=== PATIENT | female | born 1950 | race Caucasian/White ===

== ENCOUNTER 2022-05-01 13:10 | Outpatient (RCR) | payer MEDICARE, BC, SELFPAY | END 2022-09-25 13:58 | disposition home or self-care (01) | PROVIDERS: PCP Family Medicine; Visit Provider Psychiatry & Neurology Neurology | DX: M76.01 Gluteal tendinitis, right hip (principal); M54.16 Radiculopathy, lumbar region; M16.11 Unilateral primary osteoarthritis, right hip; M47.816 Spondylosis without myelopathy or radiculopathy, lumbar region; R42 Dizziness and giddiness; R26.81 Unsteadiness on feet; M54.50 Low back pain, unspecified; R26.9 Unspecified abnormalities of gait and mobility; F88 Other disorders of psychological development; Q76.414 Congenital kyphosis, thoracic region; M42.00 Juvenile osteochondrosis of spine, site unspecified; R29.810 Facial weakness; I67.1 Cerebral aneurysm, nonruptured; Z51.89 Encounter for other specified aftercare | CPT/HCPCS: 97110; 97112 ==

== ENCOUNTER 2022-05-08 14:10 | Outpatient (CLI) | payer MEDICARE, BC, SELFPAY ==
--- NOTE | 2022-05-08 14:30 | CRLHL7_ITS ---
For Patients: As a result of the Century Cures Act, medical imaging exams and procedure reports are released immediately into your electronic medical record. You may view this report before your referring provider. If you have questions, please contact your health care provider. INDICATION: Unsteady gait. TECHNIQUE: Multiplanar multisequence MR imaging acquired through the brain per to and following intravenous contrast. COMPARISON: MRI brain 12/24/2019. FINDINGS: Postsurgical changes of remote left frontal craniotomy with stable encephalomalacia, gliosis, and hemosiderin in the subjacent anterior left frontal lobe associated with ex vacuo dilatation of the left frontal horn. Prominence of the ventricles and sulci compatible with mild diffuse cerebral volume loss. No mass effect or midline shift. Scattered and patchy T2 FLAIR hyperintensities in the supratentorial white matter have slightly progressed, and are typical for sequelae of [id number] chronic microvascular ischemic changes. Stable dural thickening subjacent to the craniotomy. No concerning pathologic intracranial enhancement. No recent intracranial hemorrhage or pathologic extra-axial fluid collection. Punctate susceptibility within the lateral right frontal lobe may represent chronic microhemorrhage or mineralization. No diffusion restriction to suggest acute infarction. The major arterial flow voids of the skullbase are preserved. Thinning of the ocular lenses. Minimal ethmoid sinus mucosal thickening. Trace mastoid fluid bilaterally. IMPRESSION: 1. No acute intracranial abnormality. 2. Postsurgical changes of remote left frontal craniotomy with stable encephalomalacia and gliosis in the subjacent left frontal lobe. 3. Wyvz-rr-[id number] chronic microvascular ischemic changes have slightly progressed compared to 12/24/2019. Dictated by Joel Garcia MD @ 05/09/2022 11:57:05 AM (Electronically Signed)
== END 2022-05-08 14:11 | disposition home or self-care (01) ==
LOC: MRI 14:13
PROVIDERS: PCP Family Medicine; Visit Provider Psychiatry & Neurology Neurology
DX: R26.81 Unsteadiness on feet (principal); G93.89 Other specified disorders of brain; I67.82 Cerebral ischemia; I67.1 Cerebral aneurysm, nonruptured; I68.0 Cerebral amyloid angiopathy
CPT/HCPCS: 70553; A9575

== ENCOUNTER 2023-12-23 06:53 | Outpatient (CLI) | payer MEDICARE, BC, SELFPAY ==
[2023-12-23 07:24] VITALS: BP 191/77; PULSE 53; RESP 16; O2SAT 96
== END 2023-12-23 08:11 | disposition home or self-care (01) ==
LOC: OP CLINIC 06:55
PROVIDERS: PCP Family Medicine; Visit Provider Family Medicine
DX: M25.551 Pain in right hip (principal); M62.89 Other specified disorders of muscle
CPT/HCPCS: 27006; 76942

== ENCOUNTER 2024-07-23 14:00 | Emergency (ER) | payer MEDICARE, BC, SELFPAY ==
[2024-07-23] VITALS (12 sets, daily range): BP systolic 178–196; BP diastolic 83; PULSE 62; RESP 18; TEMP 36.6; O2SAT 96–99; BMI 27.1
--- NOTE | 2024-07-23 14:34 | CRLHL7_ITS ---
For Patients: As a result of the Cures Act, medical imaging exams and procedure reports are released immediately into your electronic medical record. You may view this report before your referring provider. If you have questions, please contact your health care provider. INDICATION: Left temporal headache. TECHNIQUE: Non-contrast CT of the head is submitted. Comparison is made with the CT brain dated 02/02/2021 in the MRI brain dated 05/08/2022 FINDINGS: Redemonstrated postsurgical changes of left frontal craniotomy with underlying encephalomalacia. No acute intracranial hemorrhage or mass effect. Patchy periventricular white matter hypodensities are suggestive of chronic small vessel ischemic changes. No hydrocephalus or midline shift. Basal cisterns are widely patent. IMPRESSION: No radiographic evidence of acute intracranial abnormalities. Please note that all CT scans at this facility use dose modulation, iterative reconstruction, and/or weight-based dosing when appropriate to reduce radiation dose to as low as reasonably achievable. Dictated by Irvin David MD @ 07/23/2024 3:19:42 PM (Electronically Signed)
--- NOTE | 2024-07-23 14:35 | ED_ITS ---
HPI - Headache General Chief Complaint: Headache/Migraine Stated Complaint: Fall two months ago, headache Time Seen by Provider: 07/23/24 14:01 History of Present Illness HPI Narrative: This 73-year-old female comes in reporting a headache on the left side of her head that is rather severe. She states the headache is in the temporal region and she feels like something is about to explode. She reports that she did fall and hit her left arm and head rather hard about 2 months ago. She did not have loss of consciousness. She recovered since then but now has developed this headache over the past several days. She does have a remote history of a stroke that she recovered from. This occurred about 6 or 8 years ago. She is not on any anticoagulants. She states that she feels off balance when ambulating but does not have any unilateral weakness. She does not report any visual changes. Related Data Home Medications ?Medication ?Instructions ?Recorded ?Confirmed levothyroxine 150 mcg capsule 150 mcg PO QDAY 08/20/22 08/20/22 rosuvastatin 20 mg tablet 20 mg PO QDAY 08/20/22 07/23/24 cetirizine 10 mg tablet 10 mg PO DAILY 07/23/24 07/23/24 gabapentin 300 mg capsule mg PO 07/23/24 levothyroxine 50 mcg tablet 50 mcg PO Q1D 07/23/24 07/23/24 levothyroxine 75 mcg tablet 75 mcg PO Q1D 07/23/24 07/23/24 Previous Rx's ?Medication ?Instructions ?Recorded ketoconazole 2 % shampoo 1 applic topical 3XW #120 mL 09/04/23 dutasteride 0.5 mg capsule 0.5 mg PO QDAY #90 caps 01/27/24 ketorolac 10 mg tablet 10 mg PO Q8H 5 days #15 tabs 07/23/24 meclizine 25 mg tablet 25 mg PO QID #20 tabs 07/23/24 Allergies Allergy/AdvReac Type Severity Reaction Status Date / Time lisinopril Allergy Cough Verified 07/23/24 14:22 Review of Systems Status of ROS: Reports: 10 or more systems reviewed and unremarkable except as noted in History and below Narrative: Constitutional: No fevers, no weight gain or loss. Eyes: No discharge. No vision changes. HENT: No congestion, no sore throat, no ear pain. Cardiovascular: No chest pain, no palpitations. Respiratory: No shortness of breath, no wheezes, no cough. Gastrointestinal: No abdominal pain, no vomiting, no diarrhea. Genitourinary: No dysuria, no hematuria. Musculoskeletal: Normal range of motion. Skin: No rashes, no pruritis. Neurological: No dizziness, weakness, sensory change, speech change. Endo/Heme/Allergies: No bruising or bleeding. No polydipsia. Pysch: no suicidality, no anxiety, no insomnia. All other systems reviewed and are negative. [facility] Medical History (Updated 07/23/24 @ 16:06 by David Patel MD) History of benign breast biopsy (2015) ?Z98.890 - Other specified postprocedural states (ICD-10) Seborrheic dermatitis ?L21.9 - Seborrheic dermatitis, unspecified (ICD-10) Surgical History (Updated 09/02/23 @ 12:25 by Giacomo Lopez) Status post cholecystectomy (1986) ?Z90.49 - Acquired absence of other specified parts of digestive tract (ICD- 10) Status post breast biopsy ?Z98.890 - Other specified postprocedural states (ICD-10) History of hysterectomy (1986) ?Z90.710 - Acquired absence of both cervix and uterus (ICD-10) History of craniotomy (2017) ?Z98.890 - Other specified postprocedural states (ICD-10) History of appendectomy (1999) ?Z90.49 - Acquired absence of other specified parts of digestive tract (ICD- 10) Social History Smoking Status: Never smoker Non-prescribed substance use: denies use Exam Narrative: Exam Narrative: Constitutional: Well-developed, well-nourished, no acute distress. HEENT: Normocephalic, atraumatic. Neck: Normal range of motion. Nontender. Supple. Heart: Regular. No murmurs. Normal rate. Intact distal pulses. Lungs: Clear to auscultation. No chest discomfort. No wheezes, rhonchi, or rales. Abdomen: Normal bowel sounds. Nontender. No rebound tenderness. Genitalia: Deferred. Back: No midline tenderness. Normal range of motion. Extremities: Normal range of motion. No injury. Skin: Intact. No rash. Warm. No erythema or pallor. Neurologic: No altered sensation. No weakness. Alert and oriented. No facial asymmetry. Tongue is midline. [id number] is normal. No pronator drift. Physical Metallurgist strength is equal bilaterally. Able to raise each leg from the bed. Psychiatric: No suicidality. No anxiety or depression. No insomnia. Nursing notes and vitals signs are reviewed. Const: Vital Signs, click to edit/add: Vital Signs - 24 hr 07/23/24 14:10 07/23/24 14:27 07/23/24 14:30 Temperature 97.8 F Pulse Rate [Right Pulse Oximeter] 62 Respiratory Rate 18 Blood Pressure [Ri ght Upper Arm] 196/83 H Pulse Oximetry 98 96 99 Oxygen Delivery Me thod Room Air 07/23/24 14:40 07/23/24 14:50 07/23/24 15:03 Temperature Pulse Rate [Right Pulse Oximeter] Respiratory Rate Blood Pressure [Ri ght Upper Arm] Pulse Oximetry 98 96 99 Oxygen Delivery Me thod 07/23/24 15:10 07/23/24 15:20 07/23/24 15:28 Temperature Pulse Rate [Right Pulse Oximeter] Respiratory Rate Blood Pressure [Ri ght Upper Arm] 178/83 H Pulse Oximetry 98 97 Oxygen Delivery Me thod 07/23/24 15:30 07/23/24 15:31 07/23/24 15:40 Temperature Pulse Rate [Right Pulse Oximeter] Respiratory Rate Blood Pressure [Ri ght Upper Arm] Pulse Oximetry 96 98 97 Oxygen Delivery Me thod Course Vital Signs Vital signs: Initial Vital Signs Temperature 97.8 F 07/23/24 14:10 Temperature Source Temporal Artery Scan 07/23/24 14:10 Pulse Rate 62 07/23/24 14:10 Pulse Rhythm Regular 07/23/24 14:10 Respiratory Rate 18 07/23/24 14:10 Blood Pressure 196/83 H 07/23/24 14:10 Blood Pressure Mean 120 H 07/23/24 14:10 Blood Pressure Position Supine 07/23/24 14:10 Pulse Oximetry 98 07/23/24 14:10 Oxygen Delivery Method Room Air 07/23/24 14:10 Vital Signs Temperature 97.8 F 07/23/24 14:10 Pulse Rate 62 07/23/24 14:10 Respiratory Rate 18 07/23/24 14:10 Blood Pressure 196/83 H 07/23/24 14:10 Pulse Oximetry 98 07/23/24 14:10 Oxygen Delivery Method Room Air 07/23/24 14:10 Temperature 97.8 F 07/23/24 14:10 Pulse Rate 62 07/23/24 14:10 Respiratory Rate 18 07/23/24 14:10 Blood Pressure 178/83 H 07/23/24 15:28 Pulse Oximetry 97 07/23/24 15:40 Oxygen Delivery Method Room Air 07/23/24 14:10 MDM - Headache MDM Narrative Medical decision making narrative: This patient comes in reporting a left-sided headache since an injury that occurred a couple months ago. Prior to this about 6 or 8 years ago she did have a craniotomy because of a hematoma in her brain. She has done well since then. She does not report any visual changes. I did order CT imaging of her head and this returns with no acute findings. Lab results also are reassuring including normal levels of C reactive protein and erythrocyte sedimentation rate. She is not tripping triggers that are suspicious for temporal arteritis or some inflammatory process. These findings are reassuring to the patient. She is okay to be discharged home. I did provide prescription for Toradol and meclizine for symptomatic relief. Lab Data Labs: Lab Results 07/23/24 Range/Units 14:49 WBC 5.52 (4.50-11.00) K/uL RBC 4.08 (4.00-5.20) m/uL Hgb 12.1 (12.0-16.0) gm/dL Hct 36.4 (33.0-51.0) % MCV 89 (80-100) fL MCH 30 (26-34) pg MCHC 33 (32-36) gm/dL RDW Coeff of Garo 12.6 (11.5-15.5) % Plt Count 177 (140-440) K/uL Neut % (Auto) 70.3 (42.0-72.0) % Lymph % (Auto) 23.7 (20-44) % [place] % (Auto) 4.5 (0.0-11.0) % Eos % (Auto) 0.9 (0.0-7.0) % Baso % (Auto) 0.4 (0.0-3.0) % Neut # (Auto) 3.88 (1.7-7.0) K/uL Lymph # (Auto) 1.31 (0.90-2.90) K/uL [place] # (Auto) 0.20 (0.00-0.90) K/UL Eos # (Auto) 0.05 (0.00-0.50) K/uL Baso # (Auto) 0.02 (0.00-0.30) K/uL Abs Immat Gran (auto) 0.01 (0.00-0.30) K/uL Imm/Tot Granulo (auto) 0.2 % ESR 8 (2-20) mm/hr C-Reactive Protein < 0.5 L (0.5-1.0) mg/dL Imaging Data CT scan - head: Radiologist's impression: No radiographic evidence of acute intracranial abnormalities. Discharge Plan Discharge Clinical Impression: Headache Patient Disposition: Home, Self-Care Condition: Stable Additional Instructions: Take medication as needed and directed. Follow up with primary physician for ongoing management. Increase activity as tolerated. Prescriptions: New ketorolac 10 mg tablet 10 mg PO Q8H 5 Days Qty: 15 0RF meclizine 25 mg tablet 25 mg PO QID Qty: 20 0RF No Action rosuvastatin 20 mg tablet 20 mg PO QDAY levothyroxine 150 mcg capsule 150 mcg PO QDAY ketoconazole 2 % shampoo 1 applic topical 3XW Qty: 120 2RF Rx Instructions: Apply topically to scalp while showering 2/3 times weekly. Leave in for 3-5 minutes and thoroughly wash out. cetirizine 10 mg tablet 10 mg PO DAILY levothyroxine 75 mcg tablet 75 mcg PO Q1D levothyroxine 50 mcg tablet 50 mcg PO Q1D gabapentin 300 mg capsule PO dutasteride 0.5 mg capsule 0.5 mg PO QDAY Qty: 90 1RF Follow Up/Referrals: Courtney Treadwell DO [Primary Care Provider] - Stand Alone [facility]: [facility] Info Inst[facility]
[2024-07-23 15:01] LABS: Basophils Absolute Auto 0.02 K/uL (0.00-0.30); Basophils Percent Auto 0.4 % (0.0-3.0); Eosinophils Absolute Auto 0.05 K/uL (0.00-0.50); Eosinophils Percent Auto 0.9 % (0.0-7.0); Hematocrit 36.4 % (33.0-51.0); Hemoglobin* 12.1 gm/dL (12.0-16.0); Immature Granulocytes Abs Auto 0.01 K/uL (0.00-0.30); Immature Granulocytes Pct Auto 0.2 %; Lymphocytes Absolute Auto 1.31 K/uL (0.90-2.90); Lymphocytes Percent Auto 23.7 % (20-44); Mean Corpuscular HGB Conc 33 gm/dL (32-36); Mean Corpuscular Hemoglobin 30 pg (26-34); Mean Corpuscular Volume 89 fL (80-100); Monocytes Percent Auto 4.5 % (0.0-11.0); Neutrophils Absolute Auto 3.88 K/uL (1.7-7.0); Neutrophils Percent Auto 70.3 % (42.0-72.0); Platelet Count* 177 K/uL (140-440); RDW Coefficient of Variation % 12.6 % (11.5-15.5); Red Blood Count 4.08 m/uL (4.00-5.20); White Blood Count* 5.52 K/uL (4.50-11.00)
[2024-07-23 15:03] LABS: Slide Review Reflex No
[2024-07-23 15:16] LABS: C Reactive Protein* < 0.5 mg/dL (0.5-1.0)
[2024-07-23 15:56] LABS: Erythrocyte SedimentationRate* 8 mm/hr (2-20)
== END 2024-07-23 16:17 | disposition home or self-care (01) ==
PROVIDERS: Emergency Provider Emergency Medicine Emergency Medical Services; PCP Family Medicine
DX: R51.9 Headache, unspecified (principal)
CPT/HCPCS: 36415; 70450; 85025; 85651; 86140; 99284

== ENCOUNTER 2024-09-08 13:45 | Outpatient (RCR) | payer MEDICARE, BC, SELFPAY | END 2025-01-06 23:59 | disposition home or self-care (01) | PROVIDERS: PCP Family Medicine; Visit Provider Family Medicine | DX: R42 Dizziness and giddiness (principal); Z74.09 Other reduced mobility; R26.89 Other abnormalities of gait and mobility; R29.898 Other symptoms and signs involving the musculoskeletal system; Z51.89 Encounter for other specified aftercare | CPT/HCPCS: 97110; 97140; 97162 ==

== ENCOUNTER 2024-10-26 10:07 | Emergency (ER) | payer MEDICARE, BC, SELFPAY ==
[2024-10-26 10:53] VITALS: BP 123/71; PULSE 58; RESP 20; TEMP 36.3; O2SAT 97; BMI 27.1
[2024-10-26] MEDS: POTASSIUM BICARB 25 MEQ EFFERVESCENT TAB 50 MEQ PO (12:52)
--- NOTE | 2024-10-26 12:53 | ED_ITS ---
HPI - General Adult General Time Seen by Provider: 12:53 Date Seen: 10/26/24 Chief complaint: Unspecified Complaint, Adult Stated complaint: Abnormal Labs - Time Seen by Provider: 10/26/24 11:37 Source: patient, RN notes reviewed and old records reviewed Mode of arrival: ambulatory Limitations: no limitations History of Present Illness HPI narrative: This 73yo female is sent to the ED for symptomatic hypokalemia. She was started on hydrochlorothiazide over a month ago and went for feeling lightheaded, weak yesterday. Her potassium was subsequently found to be 2.7. Her other labs from yesterday show creatinine 1.28, estimated GFR 44, BUN 16, glucose 99, sodium 141, bicarb 39, chloride 95, calcium 10.1. These were all normal. She has maybe felt some palpitations, nothing significant or sustained as far as any irregularity of her heartbeat. She notes that she was symptomatic like this with hypokalemia after Golytely bowel prep. Related Data Home Medications ?Medication ?Instructions ?Recorded ?Confirmed levothyroxine 150 mcg capsule 150 mcg PO QDAY 08/20/22 08/20/22 rosuvastatin 20 mg tablet 20 mg PO QDAY 08/20/22 10/26/24 cetirizine 10 mg tablet 10 mg PO DAILY 07/23/24 10/26/24 gabapentin 300 mg capsule mg PO 07/23/24 levothyroxine 50 mcg tablet 50 mcg PO Q1D 07/23/24 10/26/24 levothyroxine 75 mcg tablet 75 mcg PO Q1D 07/23/24 10/26/24 Previous Rx's ?Medication ?Instructions ?Recorded ketoconazole 2 % shampoo 1 applic topical 3XW #120 mL 09/04/23 dutasteride 0.5 mg capsule 0.5 mg PO QDAY #90 caps 01/27/24 ketorolac 10 mg tablet 10 mg PO Q8H 5 days #15 tabs 07/23/24 meclizine 25 mg tablet 25 mg PO QID #20 tabs 07/23/24 potassium chloride 20 mEq 20 meq PO DAILY #3 tabs 10/26/24 tablet,extended release Allergies Allergy/AdvReac Type Severity Reaction Status Date / Time losartan Allergy Mild Verified 10/26/24 11:03 lisinopril Allergy Cough Verified 07/23/24 14:22 Review of Systems Status of ROS: Reports: 6 or more systems reviewed and unremarkable except as noted in History and below [facility] Medical History History of benign breast biopsy (2015) ?Z98.890 - Other specified postprocedural states (ICD-10) Seborrheic dermatitis ?L21.9 - Seborrheic dermatitis, unspecified (ICD-10) Surgical History Status post cholecystectomy (1986) ?Z90.49 - Acquired absence of other specified parts of digestive tract (ICD- 10) Status post breast biopsy ?Z98.890 - Other specified postprocedural states (ICD-10) History of hysterectomy (1986) ?Z90.710 - Acquired absence of both cervix and uterus (ICD-10) History of craniotomy (2017) ?Z98.890 - Other specified postprocedural states (ICD-10) History of appendectomy (1999) ?Z90.49 - Acquired absence of other specified parts of digestive tract (ICD- 10) Social History Smoking Status: Never smoker Do you use any of these nicotine containing products: None How often do you have a drink containing alcohol: never AUDIT-C Alcohol total score: 0 Non-prescribed substance use: denies use service: No Exam Const: Vital Signs, click to edit/add: Vital Signs - 24 hr 10/26/24 10:53 10/26/24 16:15 Temperature 97.4 F L Pulse Rate [Pulse Oximeter] 58 L Respiratory Rate 20 Blood Pressure [Ri ght Upper Arm] 123/71 Pulse Oximetry 97 96 Oxygen Delivery Me thod Room Air Patient is alert, interactive, no apparent distress. Very talkative. Sclera clear, symmetrical facial function, speech is normal. CV regular, no murmur, normal S1-S2, no ectopy noted. Lungs are clear, good air entry, no wheezing crackles. Abdomen is soft, nontender, nondistended, no organomegaly. Moving arms and legs. Patient ambulatory into the ED of her own accord. Documenting provider has reviewed patient's vital signs: yes Course Course ED Course: Did review her clinic note and the recent potassium level yesterday. Will have EKG obtained, have her on monitoring and place IV. Will recheck her potassium before I start IV potassium. Will start her on 50 mEq oral effervescent potassium while we wait this. If her potassium is considerably low, we will initiate IV potassium replacement. Reevaluation(s) Time of Reevaluation #1: 13:43 Reevaluation #1: Patient's potassium has come back low at 2.6 here. Besides the 50 mEq oral potassium, will give her 2 doses of 10 mEq IV. She will likely be able to discharge to home. Her hydrochlorothiazide has been stopped. Time of Reevaluation #2: 14:46 Reevaluation #2: Patient stated with IV potassium was 2 painful, had nursing staff. It almost immediately. She is not tolerating the oral potassium, drank about 1 cup and has not been able to finish the 2nd 1. Was considering just having her drink the oral potassium. It is making her nauseated. Did discuss use of Zofran. She has had ice on her arm. She is frustrated, states she has been lying there, reviewed with her that all I really have to help her is either the IV form or the oral effervescent. The oral effervescent is actually rapid acting and quickly is absorbed the GI tract. We could try some Zofran to see. She would like to start up the IV to see if she tolerates this. She states she was told by her primary that the IV was the best. I did review with her that oral effervescent he is actually very good at replacement as well. If she is not tolerating the IV, not tolerating anymore oral effervescent, can increase her prescription of the potassium for the next few days and just have her replete this orally and with diet. Time of Reevaluation #3: 15:35 Reevaluation #3: Patient's IV infusion of potassium was stopped within 25 seconds, she had severe pain again. Went back to talk to her, she really wants to try different IV site. I told her it is very likely to do the same thing. Reviewed that the oral potassium replacement should be sufficient. She states she just really has not felt well the last month and is felt weak. She does have a history of a stroke. She was concerned her potassium is went from 2.7-2.6 today. Reviewed with her that that is really not a concerning change, could even be with instances tickle difference between laboratories sampling between facilities. Did review with her that the oral immediate release effervescent potassium really does have good absorption and improvement in potassium. Will have her IV site changed and try at a 2nd IV site. She is thinking that the IV is in too far, reviewed with her that that is just a plastic 2, is very common for potassium to be not tolerated IV. Additional Reevaluation(s): 5:00 p.m.: Nursing reports that patient took about half the IV bag with the new IV site and could not tolerated any longer. She states she has done. She has drank almost to glasses of the effervescent potassium or close to 50 mEq. Will send her with the 3rd dose of the 25 mg of went effervescent potassium home with her to slowly work on overnight. She can start potassium pills in the morning and follow-up. She is exhibiting no concerning heart rhythms during her time here and potassium should be improved even though she did not get all that we wanted in. Vital Signs Vital signs: Initial Vital Signs Temperature 97.4 F L 10/26/24 10:53 Temperature Source Temporal Artery Scan 10/26/24 10:53 Pulse Rate 58 L 10/26/24 10:53 Respiratory Rate 20 10/26/24 10:53 Blood Pressure 123/71 10/26/24 10:53 Blood Pressure Mean 88 10/26/24 10:53 Blood Pressure Position Sitting 10/26/24 10:53 Pulse Oximetry 97 10/26/24 10:53 Oxygen Delivery Method Room Air 10/26/24 10:53 Vital Signs Temperature 97.4 F L 10/26/24 10:53 Pulse Rate 58 L 10/26/24 10:53 Respiratory Rate 20 10/26/24 10:53 Blood Pressure 123/71 10/26/24 10:53 Pulse Oximetry 97 10/26/24 10:53 Oxygen Delivery Method Room Air 10/26/24 10:53 Temperature 97.4 F L 10/26/24 10:53 Pulse Rate 58 L 10/26/24 10:53 Respiratory Rate 20 10/26/24 10:53 Blood Pressure 123/71 10/26/24 10:53 Pulse Oximetry 96 10/26/24 16:15 Oxygen Delivery Method Room Air 10/26/24 10:53 Medications Administered Medications: Discontinued Medications Generic Name Dose Route Start Last Admin Trade Name Pretty PRN Reason Stop Dose Admin Potassium Chloride 10 meq in 100 mls @ 100 mls/hr 10/26/24 13:45 10/26/24 14:34 Potassium Chloride IVPB 10/26/24 16:14 100 mls/hr Q90M JODY Infusion Potassium Bicarbonate 50 meq 10/26/24 11:39 10/26/24 12:52 Potassium Bicarb 25 Meq Effervescent Tab PO 10/26/24 11:40 50 meq ONCE ONE Administration Medical Decision Making Lab Data Lab results reviewed: Yes I reviewed the patient's lab results Labs: Lab Results 10/26/24 Range/Units 13:10 Potassium 2.6 L* (3.6-5.1) mmol/L ECG Data Attestation: I personally reviewed and interpreted this ECG as follows: (Sinus bradycardia, 52 beats per minute. Flattened T-waves.) Prior ECG tracings: not available for review Critical Care Time Critical Care Time Critical Care Time: No Discharge Plan Discharge Clinical Impression: Acute hypokalemia Patient Disposition: Home, Self-Care Condition: Stable Instructions: Potassium Content of Foods List (ED), Hypokalemia (ED) Additional Instructions: Taken additional daily dose of potassium for the next 3 days. Follow up in clinic in 3-5 days to have your potassium rechecked to make sure it is maintaining. Stay off the hydrochlorothiazide as your already advised, this certainly will drop your potassium again. Have provided a food list of potassium that you can also choose from to help restore your potassium. Try to slowly sip on the rest of the effervescent potassium through the evening, can put it in the Fridge and work on it tomorrow as well until it is gone. Still can take the oral tablet starting tomorrow. Activity Level: Activity as Tolerated Prescriptions: New potassium chloride 20 mEq tablet extended release 20 meq PO DAILY Qty: 3 0RF No Action rosuvastatin 20 mg tablet 20 mg PO QDAY levothyroxine 150 mcg capsule 150 mcg PO QDAY ketoconazole 2 % shampoo 1 applic topical 3XW Qty: 120 2RF Rx Instructions: Apply topically to scalp while showering 2/3 times weekly. Leave in for 3-5 minutes and thoroughly wash out. cetirizine 10 mg tablet 10 mg PO DAILY levothyroxine 75 mcg tablet 75 mcg PO Q1D levothyroxine 50 mcg tablet 50 mcg PO Q1D gabapentin 300 mg capsule PO ketorolac 10 mg tablet 10 mg PO Q8H 5 Days Qty: 15 0RF meclizine 25 mg tablet 25 mg PO QID Qty: 20 0RF dutasteride 0.5 mg capsule 0.5 mg PO QDAY Qty: 90 1RF Follow Up/Referrals: Courtney Treadwell DO [Primary Care Provider] - Stand Alone [facility]
[2024-10-26 13:37] LABS: Potassium* 2.6 mmol/L (3.6-5.1)
[2024-10-26] MEDS: POTASSIUM CHLORIDE 10 MEQ/100 ML PIGGYBACK 100 MEQ IVPB (14:23)
[2024-10-26 16:15] VITALS: O2SAT 96
--- NOTE | 2024-10-26 17:12 | ED.NURSE ---
Patient can not tolerate IV potassium. Attempted to place new IV on a different arm at patient's request, pain still felt. Attempted to slow rate down by half, patient unable to tolerate this. MD made aware.
[2024-10-26] MEDS: POTASSIUM BICARB 25 MEQ EFFERVESCENT TAB PO (17:27)
== END 2024-10-26 17:24 | disposition home or self-care (01) ==
PROVIDERS: Emergency Provider Family Medicine; PCP Family Medicine
DX: E87.6 Hypokalemia (principal)
CPT/HCPCS: 36415; 84132; 93005; 94761; 96365; 99284; A9270; J3480

== ENCOUNTER 2025-02-05 21:07 | Emergency (ER) | payer MEDICARE, BC, SELFPAY ==
--- OUTSIDE RECORDS SUMMARY | 2025-02-05 21:09 | XMS_ITS | Clinical Summary ---
Author Organization [facility] Address [address] [place] [address] Care Team Providers Care Primary Mill Roller Name Role Phone Elsewhere, Pcp Primary Care Provider Unavailabl e Source Comments Patient records contain information from all sites at [facility]. For routine questions regarding patient records, call [phone] during business hours, M-F 8:00 AM - 5:00 PM Central Time. Record requests for emergency care only can be directed to [phone] at any time.[facility] Allergies Active Allergy Reactions Criticality Noted Date Comments Lisinopril Cough 11/29/2019 Losartan Other (see comments) 03/01/2024 Dizzy, weak feeling with blood pressures 111-140's Medications cetirizine (ZyrTEC) 10 mg tablet Take 1 tablet by mouth daily. 11/27/2015 Active cholecalciferol (for_VITAMIN D3) 2,000 Unit tablet Take 2,000 Int'l Units by mouth daily. 01/31/2016 Active rosuvastatin (CRESTOR) 20 mg tablet TK 1 T PO HS 2019 Active ketoconazole (NIZORAL) 2 % shampoo 12/18/2021 Active neomycin-polymyx in-dexamethasone (MAXITROL) 3.5mg/mL-10,000 unit/mL-0.1 % ophthalmic suspension APPLY 1 DROP IN EYES TWICE DAILY FOR 5 DAYS. MAY USE LATER NEEDED. 08/28/2022 Active acetaminophen (TYLENOL) 500 mg tablet Take 1,000 mg by mouth every 6 (six) hours as needed. 12/16/2022 Active levothyroxine 50 mcg tablet Take 50 mcg by mouth every other day. 07/23/2024 Active levothyroxine 75 mcg tablet Take 1 tablet by mouth every other day. 08/11/2024 Active meclizine (Antivert) 25 mg tablet Take 1 tablet by mouth 4 (four) times a day with meals and bedtime. 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 Other Intervertebral Disc Displacement Lumbar Re gion 01/09/2015 Other Specific Arthropathies Not Elsewhere Classified Other Specified Site 01/09/2015 Radiculopathy Lumbar 01/09/2015 Trochanteric Bursitis Right Hip 04/01/2014 Cerebral Amyloid Angiopathy Immunizations Immunization Administration Dates Next Due HepA / HepB 04/07/2017,10/31/2016,09/26/2016 PCV13 10/06/2015 PPSV23 09/26/2016 TyVi (inj) 10/02/2016 influenza trivalent high dose (HD)(PF) 7,07/09/2016,08/22/2015 Social History Tobacco Use Types Packs/Day Years Used Date Smoking Tobacco: Former Cigarettes 1 15 0 1950 - 11/04/1964 Smokeless Tobacco: Never Tobacco Cessation:Counseling Given: Not Answered Comments:Stupid choice Alcohol Use Standard Drinks/Week Comments Not Currently 0 (1 standard drink = 0.6 oz pur e alcohol) [facility] Utilities Answer Date Recorded In the past 12 months has e DVTel, gas, oil, or water company threatened to shut off services in your home? No 05/03/2024 Humiliation, Afraid, Rape, and Kick questionnair e Answer Date Recorded Within the last year, have y ou been afraid of your partner or ex-partner? No 05/05/2023 Within the last year, have y ou been humiliated or emotionally abused in other ways by your partner or ex-partner? No Within the last year, have y ou been kicked, hit, slapped, or otherwise physically hurt by your partner or ex-partner? No 05/05/2023 Within the last year, have y ou been raped or forced to have any kind of sexual activity by your partner or ex-partner? No 05/05/2023 Social Connection and Isolat ion Panel [NHANES] Answer Date Recorded In a typical week, how many times do you talk on the phone with family, friends, or neighbors? More than three times a week 02/04/2023 How often do you get togethe r with friends or relatives? Three times a week 02/04/2023 How often do you attend chur or yarsanism services? More than 4 times per year 02/04/2023 Do you belong to any clubs o r organizations such as samaritan groups, unions, fraternal or athletic groups, or school groups? Yes 02/04/2023 How often do you attend meet ings of the clubs or organizations you belong to? More than 4 times per year 02/04/2023 Are you , , di vorced, , never , or living with a partner? 02/04/2023 AUDIT-C Answer Date Recorded Q1: How often do you have a drink containing alc ohol? Never 02/04/2023 Average Number of Drinks Not on file 023 Frequency of Binge Drinking Not on file 01/18 Overall Financial Resource Strain (CARDIA) Answe r Date Recorded How hard is it for you to pa y for the very basics like food, housing, medical care, and heating? Not hard at all 05/05/2023 PHQ-2 Answer Date Recorded PHQ-2 Score 0 2022 [facility] Occupat ional [facility] - Occupational Stress Questionnaire Answer Date Recorded Do you feel stress - tense, restless, nervous, or anxious, or unable to sleep at night because your mind is troubled all the time - these days? Not at all 02/04/2023 Exercise Vital Sign Answer Date Recorde d On average, how many days pe r week do you engage in moderate to strenuous exercise (like a brisk walk)? 4 days 02/25/2024 On average, how many minutes do you engage in exercise at this level? 20 min 02/25/2024 Hunger Vital Sign Answer Date Recorded Within the past 12 months, y ou worried that your food would run out before you got the money to buy more. Never true 05/03/20 Within the past 12 months, t he food you bought just didn't last and you didn't have money to get more. Never true 05/03/2024 PRAPARE - Transportation Answer Date Re corded In the past 12 months, has l ack of transportation kept you from medical appointments or from getting medications? No 04/19 In the past 12 months, has l ack of transportation kept you from meetings, work, or from getting things needed for daily living? No 05/03/2024 Nutrition Answer Date Recorded On average, how many serving s of fruits and vegetables do you eat per day (serving size is equal to 1 cup or approximately the size of a tennis ball)? 0-2 02/25/2024 Dental Answer Date Recorded Dental: Regular Dentist Yes 10/19/20 Employment Answer Date Recorded Employment status Retired 02/25/2024 Housing Stability Answer Date Recorded What is your living situation today? I have a [facility] place to live 05/03/2024 Education Answer Date Recorded What is the highest level of school you have completed or the highest degree you have received? Bachelor's degree (e.g., BA, AB, BS) 10/19/2021 Comments No Sex and Gender Information Value Date Recorded Sex Assigned at Female 08/30/2021 12:24 PM [facility] Legal Sex Female 8:20 PM [facility] Gender Identity Female 08/30/2021 12:24 PM [facility] Sexual Orientation Straight 08/30/2021 12 :24 PM [facility]NA[facility] Last Filed Vital Signs Vital Sign Reading Time Taken Comments Blood Pressure 169/66 10/09/2023 5:17 PM [facility] Pulse 61 10/09/2023 5:22 PM [facility] Temperature 36.5 C (97.7 F) 10/09/2023 4:23 PM [facility] Respiratory Rate 17 10/09/2023 5:22 PM [facility]NA[facility]ORY Oxygen Saturation 98% 10/09/2023 5:22 PM [facility]NA[facility]ORY Inhaled Oxygen Concentration - - Weight 70.8 kg (156 lb) 10/09/2023 3:22 PM [facility] Height 166.3 cm (5' 5.47) 09/10/2023 12:[address] Body Mass Index 25.59 09/10/2023 12:06 PM [facility]NAGER [facility]ORY Plan of Treatment Upcoming Encounters Date Type Department Care Team (Late st Contact Info) Description 02/21/2025 10:45 AM CDT Office Visit Department of Orthopedic Surgery in [address] [phone] Zaira Andrade, JanineP.MMela [address] [place] [address] Discharge Disposition: Home or Self Care 04/05/2025 2:00 PM CDT Office Visit Department of Dermatology in [address] [phone] Andrade Uribe M.D. [address] [place] [address] Discharge Disposition: Home or Self Care Health Maintenance Due Date Last Done Comments CT Colonography 1950 Cologuard 1950 FIT 1950 Hepatitis C Screening 1950 Office Visit for Blood Pressure Check / Re-check 11/05/2023 08/05/2023 Thyroid Stimulating Hormone (TSH) test for thyroid function 09/15/2024 09/15/2023, 08/05/2023, 07/31/2022, Additional history exists Depression Screening (Annual PHQ-2) 10/20/2024 Fall Risk Screen (Annual) 10/20/2024 COVID-19 Vaccine ( season) 2025 08/10/2024, 04/16/2024, 07/31/2023, Additional history exists Mammogram 04/19/2025 04/19/2024, 07/0 10/2023, 04/14/2023, Additional history exists Fasting Glucose for Diabetes Screening 09/15/2026 09/15/2023, 08/05/2023, 05/02/2022, Additional history exists DTaP,Tdap,and Td Vaccines (2 - Td or Tdap) 09/21/2028 09/21/2018 Colonoscopy 10/09/2033 10/09/2023, 04/01/2023 Colorectal Cancer Screening 10/09/2033 Pneumococcal vaccine (50+ years) Completed 09/26/2016, 10/06/2015 Hepatitis A Vaccines Completed 04/07/2017, 10/31/2016, 09/26/2016 Hepatitis B Vaccines Completed 04/07/2017, 04/07/2017, 10/31/2016, Additional history exists Zoster Vaccines Completed 04/11/2019, 01/02/2019 RSV vaccine - (32-36 weeks) or 60+ years Completed 09/04/2023 Bone Density Scan (Osteoporosis Screen) Discontinued 09/23/2023 Influenza Vaccine Completed 08/10/2024, , 07/31/2022, Additional history exists IPV Vaccines Aged Out No longer eligi ble based on patient's age to complete this topic Procedures Procedure Name Priority Date/Time Associated Diagnosis Comments COLONOSCOPY Routine 10/09/2023 2:41 PM [facility] Diarrhea Vomiting COMPREHENSIVE METABOLIC PANEL, S/P Routine 08/05/2023 3:21 PM CDT Diarrhea Vomiting THYROID FUNCTION CASCADE, S Routine 08/05/2023 3:21 PM CDT Diarrhea Vomiting from Last 3 Months or Most Recently Relevant to Health Maintenance Results * Colonoscopy (10/09/2023 2:41 PM MANAGER [facility]) 10/09/2023 2:41 PM [facility] Impressions [employer] [employer] - 10/09/2023 4:44 PM [facility]ORY Post-op Diagnoses: - The examined portion of the ileum was normal. - Two 2 to 3 mm polyps in the rectum, removed with a cold biopsy forceps. Resected and retrieved. - Diverticulosis in the sigmoid, descending and transverse colon. Narrative [facility] [employer] - 10/09/2023 4:44 PM MANAGER [facility]ULATORY [facility] Patient Name: Anne Roque Date of : 1950 Age: 72 Procedure Date: 10/09/2023 Procedure: Colonoscopy Providers: Adan Collier MD Referring Provider: Filemon Sabillon MD Pre-op Diagnoses: Chronic diarrhea Recommendation: - Return to referring physician as previously scheduled. - Await pathology results. Findings: The perianal and digital rectal examinations were normal. The terminal ileum appeared normal. Two sessile polyps were found in the rectum. The polyps were 2 to 3 mm in size. These polyps were removed with a cold biopsy forceps. Resection and retrieval were complete. Multiple small and large-mouthed diverticula were found in the sigmoid colon, descending colon and transverse colon. Biopsies for histology were taken with a cold forceps from the entire colon for evaluation of microscopic colitis. Procedural Details: The patient was seen, evaluated, history reviewed, airway and heart-lung exams were performed by licensed provider and were satisfactory for planned level of sedation care. The risks, benefits and alternatives for the procedure and sedation were discussed and informed consent was obtained. A procedural pause was conducted in the presence of assisting personnel to verify the correct patient identity and procedure to be performed. Throughout the procedure, the patient's blood pressure, pulse, and oxygen saturations were monitored continuously. The Pediatric Colonoscope was introduced under direct vision through the anus and advanced to 4 cm into the ileum. The colonoscopy was somewhat difficult due to a redundant colon. Successful completion of the procedure was aided by using manual pressure. The quality of the bowel preparation was evaluated using the BBPS ([place] Bowel Preparation Scale) with scores of: Right Colon = 3, Transverse Colon = 3 and Left Colon = 3 (entire mucosa seen well with no residual staining, small fragments of stool or opaque liquid). The total BBPS score equals 9. Estimated Blood Loss: Estimated blood loss was minimal. Complications: No immediate complications. Sedation: Anesthesia was administered by an anesthesia professional. The following parameters were monitored: oxygen saturation, heart rate, blood pressure, respiratory rate, EKG, adequacy of pulmonary ventilation, and response to care. Attending Participation: I personally performed the entire procedure. Adan Collier MD 10/09/2023 4:44:29 PM This report has been signed electronically. Number of Addenda: 0 us Filemon Sabillon M.D. GI PROCEDURE ORDERABLES Lacy l Result [facility] * Thyroid Function [place] (08/05/2023 3:21 PM CDT) TSH, Sensitive 1.7 0.3 - 4.2 mIU/L 08/05/2023 4:19 PM CDT DTL Blood (Blood, Venous) 08/05/2023 3:21 PM CDT 08/05/2023 3:53 PM CDT Filemon Sabillon M.D. LAB BLOOD ADD-ON Final Resul t [facility] [address] [place] [address], [facility] [address] [place] [address] * (ABNORMAL) Comprehensive Metabolic Panel (08/05/2023 3:21 PM CDT) Potassium, S 4.1 3.6 - 5.2 mmol/L 08/05/2023 4:19 PM CDT DTL Sodium, S 144 135 - 145 mmol/L 08/05/2023 4:19 PM CDT DTL Chloride, S 108(H) 98 - 107 mmol/L 08/05/2023 4:19 PM CDT DTL Bicarbonate, S 25 22 - 29 mmol/L 08/05/2023 4:19 PM CDT DTL Anion Gap 11 7 - 15 08/05/2023 4:19 PM CDT DTL BUN (Blood Urea Nitrogen), S 10 6 - 21 mg/dL 08/05/2023 4:19 PM CDT DTL Creatinine 1.00 0.59 - 1.04 mg/dL 08/05/2023 4:19 PM CDT DTL Estimated GFR (eGFR) 59(L) >=60 mL/min/BS A 08/05/2023 4:19 PM CDT DTL Comment: Estimated GFR calculated using the 2020 CKD_EPI creatinine equation. Calcium, Total, S 9.2 8.8 - 10.2 mg/dL 08/05/2023 4:19 PM CDT DTL Glucose, S 89 70 - 140 mg/dL 08/05/2023 4:19 PM CDT DTL Protein, Total, S 6.6 6.3 - 7.9 g/dL 08/05/2023 4:19 PM CDT DTL Albumin, S 4.3 3.5 - 5.0 g/dL 08/05/2023 4:19 PM CDT DTL Aspartate Aminotransferase (AST), S 54(H) 8 - 43 U/L 08/05/2023 4:19 PM CDT DTL Alkaline Phosphatase, S 153(H) 35 - 104 U/L 08/05/2023 4:19 PM CDT DTL Alanine Aminotransferase (ALT), S 49(H) 7 - 45 U/L 08/05/2023 4:19 PM CDT DTL Bilirubin, Total, S 0.4 0.0 - 1.2 mg/dL 08/05/2023 4:19 PM CDT DTL Blood (Blood, Venous) 08/05/2023 3:21 PM CDT 08/05/2023 3:53 PM CDT Filemon Sabillon M.D. LAB BLOOD ADD-ON Final Resul t [facility] [address] [place] [address], [facility] [address] [place] [address] from Last 3 Months or Most Recently Relevant to Health Maintenance [facility] Care Teams Primary Mill Roller Relationship Specialty Start Date End Date Elsewhere, Pcp PCP - General Internal Medicine 10/29/22
--- OUTSIDE RECORDS SUMMARY | 2025-02-05 21:09 | XMS_ITS | Clinical Summary ---
Author Organization [facility] Address [facility] [place] [address] Care Team Providers Care Tire Cord Weaver Name Role Phone Tamir Treadwellher Helga PILLAI Primary Care Provider [phone] Allergies Active Allergy Reactions Criticality Noted Date Comments Hydrochlorothiazide Hypokalemia 01/06/2025 Lisinopril Cough 11/29/2019 Losartan Intolerance-Can't Take 03/01/2024 Dizzy, weak feeling with blood pressures 111-140's Medications ketoconazole 2% shampoo (NIZORAL) 2 % shampoo 12/19/19 22 Active acetaminophen (TYLENOL EXTRA STRGTH) 500 mg tablet Take 2 Tablets (1,000 mg) by mouth every 6 hours if needed for Pain. Max acetaminophen dose: 4000mg in 24 hrs. 0 12/16/19 23 Active rosuvastatin (CRESTOR) 20 mg tabletIndications: Hyperlipidemia, unspecified hyperlipidemia type TAKE 1 TABLET(20 MG) BY MOUTH AT BEDTIME 90 Tablet 3 06/10/20 24 Active cetirizine (ZYRTEC) 10 mg tabletIndications: Seasonal allergies Take 1 Tablet (10 mg) by mouth once daily. 90 Tablet 2 09/08/20 24 Active meclizine (ANTIVERT) 25 mg tabletIndications: Vertigo Take 1 Tablet (25 mg) by mouth every 6 hours if needed for Vertigo. 30 Tablet 3 09/20/20 24 Active levothyroxine (SYNTHROID) 75 mcg tabletIndications: Hypothyroidism, unspecified type TAKE 1 TABLET BY MOUTH EVERY OTHER DAY 45 Tablet 3 09/20/20 24 Active levothyroxine (SYNTHROID) 50 mcg tabletIndications: Hypothyroidism, unspecified type TAKE 1 TABLET BY MOUTH EVERY OTHER DAY 45 Tablet 3 09/20/20 24 Active Active Problems Problem Noted Date Diagnosed Date Chronic constipation 12/10/2023 Generalized-onset seizures 07/31/2022 DNR (do not resuscitate) 11/07/2021 Cerebral amyloid angiopathy 12/01/2020 Aneurysm 04/05/2020 Overview (07/31/2022): Small left ICA aneurysm. This is felt to be an incidentally discovered aneurysm. Using the PHASES scoring tool, (Lancet Neurology. Vol 13, October 2013), it is estimated that the risk and rate of rupture of this aneurysm is approximately 0.4% in the next 5 years. Observation recommended. This was found on MRI incidentally 12/2019. Had repeat imaging 2020 and 2021, due December 2024. Osteopenia of necks of both femurs 06/09/2019 Overview (06/09/2019): 2016 dexa at [facility]: Osteopenia worse at right femoral neck T score -1.7 (see scanned) Pulmonary nodule 06/08/2019 Overview (12/26/2020): CT 07/09/18 two indeterminate pulmonary nodules measuring up to 5mm. Repeat CT 2020 stable, no further follow up needed Cerebral amyloid angiopathy (CODE) 10/27/2018 HTN (hypertension) 07/17/2018 Assessment & Plan (08/16/2024 2:12 PM CDT): Previously on anti-hypertensive medications but off of them after some lows. Monitor for one week and reassess the need for medication. 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 Lumbar disc bulging 01/09/2015 Lumbar facet arthropathy 01/09/2015 Lumbar radicular pain 01/09/2015 Tendinosis of the right hip gluteal tendons 03/20 S/P craniotomy Resolved Problems Problem Noted Date Diagnosed Date Resolved Date Ventricular tachycardia 12/10/2023 01/0 03/2025 Hip tendonitis 04/01/2014 12/19/2014 Encounters Date Type Department Care Team Description 01/28/2025 Orders Only [facility] Scanner 1 scan: (1-Ord) [facility], SHAVE BIOPSY, 01/28/2025 01/10/2025 3:30 PM CDT Ancillary Procedure [facility] [address] [facility] [address] 01/10/2025 Travel 01/06/2025 11:15 AM CDT Office Visit [facility] [address] [place] [address] Courtney Treadwell DO Medication Management (Potassium reaction); Blood Pressure 01/06/2025 Travel 01/01/2025 Travel 11/15/2024 1:05 PM [facility] Office Visit [facility] [address] [place] [address] Courtney Treadwell DO Follow Up; Skin Problem (itching.) 11/15/2024 Travel 11/11/2024 2:30 PM [facility] Orders Only [facility] [address] [facility] [address] [facility] [place] [facility] 11/10/2024 Travel from Last 3 Months Immunizations Immunization Administration Dates Next Due COVID-19 VACCINE SPIKEVAX (M ODERNA 50MCG/0.5ML) 12YO+ PFS 08/10/2024,07/31/2023 COVID-19 vaccine (Pfizer-Bio NTech 30mcg/0.3mL) 12YO+ BIVALENT PF, MDV 07/31/2022 COVID-19 vaccine (Pfizer-Bio NTech 30mcg/0.3mL) 12YO+ MATHIEU-SUCROSE PF, MDV 02/19/2022 COVID-19 vaccine (Pfizer-Bio NTech 30mcg/0.3mL) PFMDV 07/19/2021,01/12/2021,12/22/2020 HepA-HepB (Twinrix) 04/07/2017,10/31/2016,2015 Influenza RIV4 (Age 18+ Year s) PRESERV FREE 07/21/2019 Influenza, High-dose Inactivated 020,09/07/2019,07/17/2017,07/09,08/22/2015 Influenza, High-dose Quadriv alent Inactivated 06/29/2021 Influenza, IIV4 (=>6mos) MDV 07/22/2019,09/03/20 Influenza, Inactivated AIIV4 (Age 65+ Years) Preserv Free 07/15/2023,07/31/2022 Influenza, Inactivated IIV3 (Age 65+ Years) Preserv Free 08/10/2024 Pneumococcal Poly,23-Valent (Pneumovax) 09/26/2016 Pneumococcal conj 13-Valent (Prevnar 13) 10/06/2015 RSV, Recombinant ADJ Reconst ituted (Arexvy 120MCG/0.5mL) 09/04/2023 Tdap 09/21/2018 Tuberculin Skin Test, Unspecified 08/04/2018,11/2017 Typhoid (injectable) 10/02/2016 Zoster (Shingrix-RZV, recombinant) 04/11/2019, Family History Medical History Relation Name Comments Stroke Father Cancer-breast Mother Cancer No Family History Cancer-colon No Family History Cancer-ovarian No Family History Cancer-prostate No Family History Relation Name Status Comments Father Mother Social History Tobacco Use Types Packs/Day Years Used Date Smoking Tobacco: Former Cigarettes Q uit: 07/15/2008 Smokeless Tobacco: Never Tobacco Cessation:Counseling Given: Yes Alcohol Use Standard Drinks/Week Comments No 0 (1 standard drink = 0.6 oz pur e alcohol) PHQ-2 Answer Date Recorded PHQ-2 TOTAL SCORE 0 09/20/2024 Social Connections Answer Date Recorded Do you often feel lonely or isolated from those around you? 0 01/06/2025 Financial Resource Strain Answer Date R ecorded Difficulty of Paying Living Expenses 3 01/06/2025 Difficulty of Paying Living Expenses Not on file 01/06/2025 Food Insecurity Answer Date Recorded Do you worry your food will run out before you are able to buy more? 1 01/06/2025 Transportation Needs Answer Date Record ed Does lack of transportation keep you from medica l appointments? 1 01/06/2025 Does lack of transportation keep you from work, meetings or getting things that you need? 1 01/06/2025 Housing Stability Answer Date Recorded What is your housing situation today? 1 01/06/2025 Utilities Answer Date Recorded Do you have trouble paying f or utilities (for example, heat, electricity, water, phone)? 1 01/06/2025 Comments No Sex and Gender Information Value Date Recorded Sex Assigned at Female 11/01/2021 6:34 PM [facility] Legal Sex Female 5:25 AM [facility] Gender Identity Female 11/01/2021 6:34 PM [facility] Sexual Orientation Straight 11/01/2021 6: 34 PM [facility] Occupation Industry Job Start Date Job End Date Retired Not on file Not on file Not on file Obstetrics History Para Term AB IAB SAB Ectopic Multiple Livin g Live Births 2 2 0 2 0 0 0 0 0 2 2 Date Outcome GA Total Labor Labor/2nd/3rd Weight Sex Type Anes PTL Lisa A1 A5 Name Clin Vag Living Vag Living Last Filed Vital Signs Vital Sign Reading Time Taken Comments Blood Pressure 131/75 01/06/2025 11:43 AM CDT Pulse 73 01/06/2025 11:43 AM CDT Temperature 36.5 C (97.7 F) 07/23/2024 12:36 PM CDT Respiratory Rate 16 07/23/2024 12:36 PM CDT Oxygen Saturation 98% 01/06/2025 11:43 AM CDT Inhaled Oxygen Concentration - - Weight 71.2 kg (157 lb) 01/06/2025 11:43 AM CDT Height 162.5 cm (5' 3.98) 09/20/2024 3:05 PM CS T Body Mass Index 26.97 09/20/2024 3:05 PM [facility] Plan of Treatment Upcoming Encounters Date Type Department Care Team (Late st Contact Info) Description 02/21/2025 11:15 AM CDT Nurse/Clinic Staff Only [facility] [address] [place] [address] Health Maintenance Due Date Last Done Comments COVID-19 vaccine series ( season) 2025 08/10/2024, 04/16/2024, 07/31/2023, Additional history exists BMI (ht and wt on same day) for age 18+ 09/20/2025 09/20/2024, 09/15/2023, 03/10/2023, Additional history exists Depression screening for age 12+ 09/20/2025 09/20/2024, 09/15/2023, 07/31/2022, Additional history exists Medicare Wellness for age 65+ 09/21/2025, 09/15/2023, 07/31/2022, Additional history exists Tetanus booster 09/21/2028 09/21/2018 Lipids for age 45-75 09/20/2029 09/20/2024, 09/15/2023, 07/31/2022, Additional history exists Colonoscopy through age 75 10/09/203310/09 (Verified in Care Everywhere or Patient Record), 04/01/2023, 04/14/2019, Additional history exists Pneumococcal series for age 50+ Completed 6, 10/06/2015 Hepatitis C screening for ag e 18-79 Completed 04/02/2018 Tdap Completed 09/21/2018 Zoster (shingles) series for age 50+ Completed 04/11/2019, 01/02/2019 RSV vaccine for adults or Completed 09/04/2023 DEXA/DXA scan for age 65+ Completed 2022, 07/12/2019, 10/23/2015 Influenza Vaccine Completed 08/10/2024, , 07/31/2022, Additional history exists Medical Devices Implanted Type Area Surveyor Rod Helper Device Identifier Shelf Expiration Date Model / Serial / Lot Dura Neuro 2x2in Durepair Sut - [id number] Implanted:Qty: 1 on 07/15/2018 by Dustin Doshi MD at [facility] Left: Cranium [employer] 07/19/2020 [id number]# / / [id number] Screw Neuro 4mm Matrixneuro Slf Drill Titnm - [id number] Implanted:Qty: 18 on 07/15/2018 by Dustin Doshi MD at [facility] Left: Cranium J And Kory Depuy CMF [id number] 4.01# / / Screw Facial 4mm Matrixneuro Emergency - [id number] Implanted:Qty: 1 on 07/15/2018 by Dustin Doshi MD at [facility] Left: Cranium Kory And Kory Hutchisonuy CMF [id number] 4.01# / / Plate Facial [id number] 4hole Synthes Box - [id number] Implanted:Qty: 1 on 07/15/2018 by Dustin Doshi MD at [facility] Left: Cranium Kory And Kory Depuy CMF [id number]# / / Haily Hole Cover Neuro 24mm Synthes Low Pro Titnm - [id number] Implanted:Qty: 4 on 07/15/2018 by Dustin Doshi MD at [facility] Left: Cranium Kory And Kory Depuy CMF [id number]# / / Procedures Procedure Name Priority Date/Time Associated Diagnosis Comments SCAN-OPERATIVE/PROC EDURE REPORT 01/28/2025 12:00 AM CDT MR ANGIO HEAD BRAIN WO Routine 01/10/2025 4:48 PM CDT Cerebral aneurysm (HC) POTASSIUM Routine 11/15/2024 2:23 PM [facility] Hypokalemia TSH Routine 11/15/2024 2:23 PM [facility] History of Rody thyroiditis Hypothyroidism (acquired) HEMOGLOBIN Routine 11/15/2024 2:23 PM [facility] Fatigue, unspecified type POTASSIUM Routine 11/11/2024 2:52 PM [facility] Hypokalemia LIPID PANEL W REFLEX MEASURED LDL Routine 09/20/2024 3:55 PM [facility] Hyperlipidemia, unspecified hyperlipidemia type XR DXA BONE DENSITY 2 SITES AXIAL Routine 09/23/2023 9:45 AM [facility] Osteopenia, unspecified location Other specified disorders of bone density and structure, multiple sites COLONOSCOPY DIAGNOSTIC STAT 04/01/2023 9:49 AM CDT Melena Chronic diarrhea from Last 3 Months or Most Recently Relevant to Health Maintenance Results * SCAN-OPERATIVE/PROCEDURE REPORT (01/28/2025 12:00 AM CDT) us Scanner OTHER Final Result * MR Angio Head wo Contrast * (01/10/2025 4:48 PM CDT) Anatomical Region Laterality Modality HEAD, BRAIN Magnetic Resonan ce 01/11/2025 10:4 9 AM CDT Impressions 01/11/2025 10:49 AM CDT Unchanged 3mm left lateral paraclinoid ICA aneurysm. A follow-up MRA of the head will be obtained in December 2029, 10 years after initial discovery. Dictated by Lexx Luis MD @ 01/11/2025 10:49:59 AM (Electronically Signed) Narrative 01/11/2025 10:49 AM CDT For Patients: As a result of the Cures Act, medical imaging exams and procedure reports are released immediately into your electronic medical record. You may view this report before your referring provider. If you have questions, please contact your health care provider. CLINICAL HISTORY: Patient with cerebral aneurysm. TECHNIQUE: 3D TOF MRA of the head was performed. 3D MIP reformats were performed at an independent workstation. COMPARISON: 12/20/2021. FINDINGS: There has been no substantial interval change in the untreated 3mm left lateral paraclinoid ICA aneurysm. There are no new aneurysms. The rest of the intracranial vasculature is unremarkable. Procedure Note Lexx Luis MD - 01/11/2025 For Patients: As a result of the Cures Act, medical imagingexams and procedure reports are released immediately into your electronicmedical record. You may view this report before your referring provider.If you have questions, please contact your health care provider. CLINICAL HISTORY: Patient with cerebral aneurysm. TECHNIQUE: 3D TOF MRA of the head was performed. 3D MIP reformats were performed atan independent workstation. COMPARISON: 12/20/2021. FINDINGS: There has been no substantial interval change in the untreated 3mm leftlateral paraclinoid ICA aneurysm. There are no new aneurysms. The rest of the intracranial vasculature is unremarkable. IMPRESSION: Unchanged 3mm left lateral paraclinoid ICA aneurysm. A follow-up MRA of the head will be obtained in December 2029, 10 years afterinitial discovery. Dictated by Lexx Luis MD @ 01/11/2025 10:49:59 AM (Electronically Signed) Omayra Sandoval MD MR Final Result * TSH (11/15/2024 2:23 PM [facility]) TSH 0.94 0.40 - 4.50 mIU/L [facility] [employer] [employer] [facility] [place] Blood BLOOD SPECIMEN / Unknown 11/15/2024 2:23 PM [facility] 11/15/2024 2:23 PM [facility] Helga Treadwell DO CHEMISTRY Final Resu lt [employer] [facility] [address] [place] [address], [facility] [address] [place] [address] * HEMOGLOBIN (11/15/2024 2:23 PM [facility]) Pathologist [facility] HEMOGLOBIN 12.7 11.7 - 15.5 g/dL [facility] [place] Blood BLOOD SPECIMEN / Unknown 11/15/2024 2:23 PM [facility] 11/15/2024 2:23 PM [facility] Courtney Treadwell DO HEMATOLOGY Final Resu lt [employer] [facility] [email or web address] [employer] [place] [address], [place] [phone] [facility] [address] [place] [address] * POTASSIUM (11/15/2024 2:23 PM [facility]) Only the most recent of2 resultswithin the time period is included. Pathologist [facility] POTASSIUM 4.1 3.5 - 5.3 mmol/L [facility] [employer] [place] Blood BLOOD SPECIMEN / Unknown 11/15/2024 2:23 PM [facility] 11/15/2024 2:23 PM [facility] Courtney Partida Mile DO CHEMISTRY Final Resu lt [employer] [facility] [address] [place] [address], [facility] [address] [place] [address] * (ABNORMAL) LIPID PANEL W REFLEX MEASURED LDL (09/20/2024 3:55 PM [facility]) CHOLESTEROL, TOTAL 190 <200 mg/dL [facility] [place] HDL CHOLESTEROL 53 > OR = 50 mg/dL [facility] [employer] [employer] [facility] TRIGLYCERIDES 212(H) <150 mg/dL [facility] [employer] [facility] [place] Comment: If a non-fasting specimen was collected, consider repeat triglyceride testing on a fasting specimen if clinically indicated. Rodolfo et al. J. of Clin. Lipidol. 2015;9:129-169. LDL-CHOLESTEROL 104(H) mg/dL (calc) [facility] [employer] [facility] Comment: Reference range: <100 Desirable range <100 mg/dL for primary prevention; <70 mg/dL for patients with CHD or diabetic patients with > or = 2 CHD risk factors. LDL-C is now calculated using the Abraham-Carlene calculation, which is a validated novel method providing better accuracy than the Friedewald equation in the estimation of LDL-C. Abraham ASHLEY et al. MANJIT. 2013;310(19): 4362-6453 (http://education.MyJobMatcher.com/faq/DWQ687) CHOL/HDLC RATIO 3.6 <5.0 (calc) [facility] [employer] [facility] NON HDL CHOLESTEROL 137(H) <130 mg/dL (calc) [facility] [employer] [facility] Comment: For patients with diabetes plus 1 major ASCVD risk factor, treating to a non-HDL-C goal of <100 mg/dL (LDL-C of <70 mg/dL) is considered a therapeutic option. Blood BLOOD SPECIMEN / Unknown 09/20/2024 3:55 PM [facility] 09/20/2024 3:55 PM [facility] Courtney Treadwell DO CHEMISTRY Final Resu lt [employer] [facility] [address] [place] [address], [facility] [address] [place] [address] * (ABNORMAL) XR DXA BONE DENSITY 2 SITES AXIAL (09/23/2023 9:45 AM [facility]) Anatomical Region Laterality Modality Spine, HIPS, HIPL, HIPR Other Impressions 09/29/2023 7:54 AM [facility] Osteopenia. RECOMMENDATIONS: The National Osteoporosis Foundation recommends pharmacologic treatment for patients with T-scores of -2.5 or less, patients with prior history of fragility fractures, or patients with 10-year probability of greater than 3% at hips or greater than 20% of suffering major osteoporotic fractures. Recommend continued optimization of calcium and vitamin D intake through dietary means and/or supplementation and regular exercise. Consider pharmacologic therapy for osteopenia with increased fracture risk. Follow-up bone density reading in 2 years if therapy initiated to assess therapeutic efficacy. Danelle Monreal PA-C [facility] 09/29/2023 Narrative 09/29/2023 7:54 AM [facility] For Patients: Results are automatically released to your [facility] account once available, in compliance with federal regulations. This means that you may see your results before your provider has had a chance to review them. Please allow 2-3 business days for your provider to comment on the results. XR DXA Bone Mineral Density (BMD) EXAM LOCATION: [address] [address] PATIENT NAME: Anne Roque DATE OF : 1950 EXAM DATE: 09/23/2023 REQUESTING PROVIDER: Courtney Treadwell DO GENDER AT : female HEIGHT: 5' 3.74 (09/15/2023) WEIGHT: 162 lb (09/15/2023) MENOPAUSAL STATUS: Postmenopausal RACE/ETHNICITY: White RISK FACTORS: White Race CURRENT MEDICATION FOR BONE LOSS: NONE INDICATION: Follow-up of existing osteopenia and Post-Menopause COMPARISON DATE(S): 2018 DXA scans are compared to prior studies for a patient only when the two (or more) studies were performed on the same scanner. It is not possible to compare data generated on one scanner to data from another because there are not standards in DXA equipment. This applies even if the two scanners are made by the same interior surface insulation worker. PROCEDURE: Dual-energy x-ray absorptiometry performed with routine technique. Reporting is completed in the form of a T-score. The T-score represents the standard deviation from peak bone mass based on young healthy adult. A Z-score is used for diagnosis in premenopausal women, and for men under the age of 50. FINDINGS: RESULT LUMBAR SPINE L1 - L4 BMD: 1.208 g/cm2 T-Score: + 0.1 Z-Score: + 1.6 Change from prior in 2019: Increase 8.9%. RESULTS FEMUR Left femoral neck BMD: 0.827 g/cm2 T-Score: - 1.5 Z-Score: + 0.2 Change from prior in 2019: Increase 4.7%. Right femoral neck BMD: 0.726 g/cm2 T-Score: - 2.2 Z-Score: - 0.6 Change from prior in 2019: Decrease 4.5%. Left hip BMD: 0.743 g/cm2 T-Score: - 2.1 Z-Score: - 0.6 Change from prior in 2019: Decrease 2.4%. Right hip BMD: 0.744 g/cm2 T-Score: - 2.1 Z-Score: - 0.6 Change from prior in 2019: Decrease 5.0%. WHO criteria: Normal: T-score at or above -1 SD Osteopenia: T-score between -1.1 and -2.4 SD Osteoporosis: T-score at or below -2.5 SD FRAX RISK CALCULATION (USED FOR OSTEOPENIA ONLY): 10-year probability of major osteoporotic fracture: 14.4%. 10-year probability of hip fracture: 3.9%. us Courtney Treadwell DO DEXA Final Resu lt * COLONOSCOPY DIAGNOSTIC (04/14/2019 11:29 AM CDT) Courtney Treadwell DO GI PROCEDURE ORD Final Res ult from Last 3 Months or Most Recently Relevant to Health Maintenance Insurance MEDICARE PART A HB ONLY [facility] FED EMP MEDICARE PB ONLY MEDICARE PART B HB ONLY Advance Directives Documents on File Type Date Recorded Patient Personal Carer Expl anation POLST 11/13/2021 7:38 AM POL, [facility], 11/06/2021 Healthcare Directive 07/15/2018 12:00 AM * Full Code (Latest Code Status on File) Date Activated Date Inactivated Comments 07/15/2018 6:17 AM 07/20/2018 4:14 PM Question Answer Comments Code Status Discussion: Not DiscussedPer Advance Care Plan Care Teams Tire Cord Weaver Relationship Specialty Start Date End Date Courtney Treadwell DO [address] [place] [address] PCP - General Family Practice 10/27/18
--- OUTSIDE RECORDS SUMMARY | 2025-02-05 21:09 | XMS_ITS ---
Author Organization [facility] Address [address] [place] [address] , [address] [place] [address] Phone Care Team Providers Care Activity Coordinator Name Role Phone Shakeel Mckeon MD Conditions or Problems Problem Name Problem Code Onset Date Status Entry Date Provider Comment Standard Description Annotate Facial droop 36774058 (SNOMED CT) Resolved Shakeel Mckeon MD Weakness of face muscles Low back pain, chronic 150296688 (SNOMED CT) Active Shakeel Mckeon MD Chronic low back pain Hx of falls 094612533 (SNOMED CT) Active Shakeel Mckeon MD History of fall Hx of Benign paroxysmal positional vertigo (BPPV) 303691623 (SNOMED CT) Active Shakeel Mckeon MD H/O: vertigo Orthostatic dizziness 761407733 (SNOMED CT) Active Shakeel Mckeon MD Postural dizziness Medications No information available. Medications Administered No information available. Allergies, Adverse Reactions, Alerts No information available. Results Date Name Value Unit Range Flag Description Office Visit: Office Visit MEDS REVIEW Done Documenta tion of current medications (procedure) Plan of Care Type Date Detail Appointment 08:45 AM [place], [address] [place] [address] [employer], [address], [place], [address], Appointment 11:00 AM Carol Earl PA-C, [address] [place] [address], [address], [place], [address], Referral Pain Clinic Refe rral Referral Hand Surgeon Ref erral Pending order Follow up with N eurologist or PARMJIT Pending order Follow up with N eurologist or PARMJIT Pending order EEG 2hr Pending order EEG 2hr Pending order Occupational The rapy Pending order Physical Therapy Pending order Neuropsychology Evaluation Pending order EEG 2hr Procedures Code Procedure Name Date Entry Date [id number] Documentation of current medicatio ns Vital Signs Date Name Value Unit Description Height 64 [in_us] height E&M Immunizations No information available. Advance Directives No information available.
--- OUTSIDE RECORDS SUMMARY | 2025-02-05 21:10 | XMS_ITS ---
Author Organization [facility] Care Team Providers Care Staff Writer Name Role Phone Jayda Zaragoza Unavailable Unavailable Gold George Unavailable Unavailable Allergies and adverse reactions No Known Allergies Care Team Name Role Address Phone Organization Dates Gold George PCP [facility] [address] [place] [address], [address], [place], [facility], [facility] (Office): [facility] 07/20/2018 - 08/26/2018 Jayda Zaragoza Attending Physician [facility] [address] [place] [address] [address], [place], [facility], [facility] (Office): : [facility] 07/20/2018 - 08/26/2018 Immunizations Immunization Status Vaccine Details Vaccine Code CodeSystem Date Notes Influenza completed Influenza, high-dose, split virus, quadrivalent, injectable, preservative free lotNumber: [id number] expiry: 04/18/2019 Mfg: [employer] Given 0.5 ml Left Deltoid intramuscularly 197 CVX created date: 07/22/2018 consent date: 07/22/2018 administer ed date: 07/22/2018 Hepatitis B completed hepatitis B vaccine, adult dosage 43 CVX created date: 07/20/2018 administer ed date: 04/07/2017 3 OF 3 Hepatitis B completed hepatitis B vaccine, adult dosage 43 CVX created date: 07/20/2018 administer ed date: 10/31/2016 2 OF 3 Hepatitis B completed hepatitis B vaccine, adult dosage 43 CVX created date: 07/20/2018 administer ed date: 09/26/2016 1 OF 3 TB 2 Step Mantoux Skin Test completed tuberculin skin test; unspecified formulation lotNumber: [id number] expiry: 09/04/2020 Mfg: [employer] Given 0.1 ml Right Forearm intradermally Step 2 of Multi-step with next step required 98 CVX created date: 08/04/2018 consent date: 08/04/2018 administer ed date: 08/04/2018 Results read at 0749 on 08/06 by RADHA Hayward TB 2 Step Mantoux Skin Test completed tuberculin skin test; unspecified formulation lotNumber: [id number] expiry: 09/04/2020 Mfg: [employer] pasteur Given 0.1 ml Left Forearm intradermally Step 1 of Multi-step with next step required 98 CVX created date: 07/21/2018 consent date: 07/21/2018 administer ed date: 07/21/2018 Results read at 1138 on 07/23/18 by RADHA Hayward [email or web address], Pneumovax 23 completed created date: 07/20/2018 administer ed date: 09/26/2016 PCV13, [id number] completed created date: 07/20/2018 administer ed date: 10/06/2015 Mental Status Section Date Assessment Total Score Description 08/26/2018 BIMS 13 cognitively int act CAM 0 No delirium ind icated PHQ-9 00 08/16/2018 BIMS 13 cognitively int act CAM 2 Delirium indica hetal PHQ-9 00 Problems Problem # Description Date of onset Resolved Date Code CodeSystem Concern Status 1 ENCOUNTER FOR OTHER SPECIFIED SURGICAL AFTERCARE 07/29/[address] active 2 AGE-RELATED OSTEOPOROSIS WITHOUT CURRENT PATHOLOGICAL FRACTURE 07/20/[address] active 3 ALLERGIC RHINITIS, UNSPECIFIED 07/20/[address] active 4 CONSTIPATION, UNSPECIFIED 07/20/[address] active 5 ESSENTIAL (PRIMARY) HYPERTENSION 07/20/[address] active 6 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 07/20/[address] active 7 HYPERLIPIDEMIA, UNSPECIFIED 07/20/[address] active 8 HYPOTHYROIDISM, UNSPECIFIED 07/20/[address] active 9 OTHER REDUCED MOBILITY 07/20/[address] active 10 UNSPECIFIED SENSORINEURAL HEARING LOSS 07/20/[address] active 11 UNSTEADINESS ON FEET 07/20/[address] active 12 VITAMIN D DEFICIENCY, UNSPECIFIED 07/20/[address] active Reason for Referral No Reasons for Referral Entered Social History Social History Observation Description Start Date End Date Code Code System Current Smoking Status Tobacco smoking consumption unknown 351479221 SNOMED CT Sex Assigned At Female 1950 43048-8 [facility] Vital Signs Code Code System Vitals Name Values and Units Timing Information 8462-4 [facility] Blood Pressure-Diastolic Value=68 Un its=mmHg 08/26/2018 8480-6 [facility] Blood Pressure-Systolic Raxno=195 Un its=mmHg 08/26/2018 8867-4 [facility] Heart rate Value=81.0 Units=/min 04/2018 05324-7 [facility] Weight Ngzme=901.8 Units=Lbs 02/2018 9279-1 [facility] Respiratory Rate Value=16.0 Units=/m in 08/20/2018 8310-5 [facility] Body Temperature Value=97.7 Units= F 08/20/2018 17287-4 [facility] O2 % BldC Oximetry Value=97.0 Units= % 08/20/2018 19467-2 LOINC Pain Level Value=0.0 08/19/2018 8302-2 LOINC Height Value=64.0 Units=Inches 07/21/2018
--- OUTSIDE RECORDS SUMMARY | 2025-02-05 21:10 | XMS_ITS | Clinical Summary ---
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 Name Role Phone Savi Tyson Unavailable Unavailable Conditions or Problems Problem Name Problem Code Onset Date Status Entry Date Provider Comment Standard Description Annotate Facial droop 83015871 (SNOMED CT) 12/22 Resolved 12/22 Shakeel Mckeon MD Weakness of face muscles Low back pain, chronic 289290483 (SNOMED CT) 02/04 Active 02/04 Shakeel Mckeon MD Chronic low back pain Hx of falls 848701967 (SNOMED CT) 02/04 Active 02/04 Shakeel Mckeon MD History of fall Hx of Benign paroxysmal positional vertigo (BPPV) 009360785 (SNOMED CT) 02/04 Active 02/04 Shakeel Mckeon MD H/O: vertigo Orthostatic dizziness 441227604 (SNOMED CT) 02/04 Active 02/04 Shakeel Mckeon MD Postural dizziness Seizures 42962767 (SNOMED CT) Resolved Shakeel Mckeon MD Seizure Congenital kyphosis, 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 ) 01/23 Resolved 10/24 Shakeel Mckeon MD Congenital kyphosis, thoracic region Dyslipidemi a 243755310 (SNOMED CT) 07/17 Resolved 10/24 Shaekel Mckeon MD Dyslipidemia HTN (hypertensi on) 98182929 (SNOMED CT) 07/17 Resolved 10/24 Shakeel Mckeon MD Hypertensive disorder Hypothyroid ism 26175642 (SNOMED CT) 07/17 Resolved 10/24 Shakeel Mckeon MD Hypothyroidism Lumbar radicular pain M54.16 (ICD-10-CM ) 01/09 Resolved 10/24 Shakeel Mckeon MD Radiculopathy, lumbar region S/P craniotomy Z98.890 (ICD-10-CM ) Resolved 10/24 Shakeel Mckeon MD Other specified postprocedural states 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 ) 01/23 Resolved 10/24 Shakeel Mckeon MD Juvenile osteochondrosis of spine, site unspecified Tendinosis of the right hip gluteal tendons M70.61 (ICD-10-CM ) 04/01 Resolved 10/24 Shakeel Mckeon MD Trochanteric bursitis, right hip Vitamin D deficiency 80717852 (SNOMED CT) 07/17 Resolved 10/24 Shakeel Mckeon MD Vitamin D deficiency Dizziness 249301526 (SNOMED CT) 02/16 Resolved 02/16 Shakeel Mckeon MD Dizziness Medication monitoring 707312539 (SNOMED CT) 04/30 Resolved 04/30 Shakeel Mckeon MD Medication monitoring Medication monitoring 051231465 (SNOMED CT) 04/30 Removed 04/30 Helga Randall Rechtzigel DNP,BEAUTY CULTURIST APPRENTICE,CN P Medication monitoring Unsteady gait 51154311 (SNOMED CT) 03/04 Active 03/04 Helga Randall Rechtzigel DNP,BEAUTY CULTURIST APPRENTICE,CN P Unsteady when walking Dizziness 763436323 (SNOMED CT) 02/16 Removed 02/16 David Russell MD Dizziness Seizures 57779597 (SNOMED CT) Removed David Russell MD Seizure Cerebral aneurysm 659777581 (SNOMED CT) 12/26 Active 12/26 David Russell MD Intracranial aneurysm Facial droop 77611100 (SNOMED CT) 12/22 Removed 12/22 David Russell MD Weakness of face muscles Cognitive disorder 669157595 (SNOMED CT) 11/24 Active 12/03 Heather Holcomb PhD Cognitive disorder Cerebral amyloid angiopathy 804413222 (SNOMED CT) 10/24 Active 10/24 David Russell MD Cerebral amyloid angiopathy Vitamin D deficiency 88764265 (SNOMED CT) 07/17 Removed 10/24 David Russell MD Vitamin D deficiency Tendinosis of the right hip gluteal tendons M70.61 (ICD-10-CM ) 04/01 Removed 10/24 David Russell MD Trochanteric bursitis, right hip 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 ) 01/23 Removed 10/24 David Russell MD Juvenile osteochondrosis of spine, site unspecified S/P craniotomy Z98.890 (ICD-10-CM ) Removed 10/24 David Russell MD Other specified postprocedural states Lumbar radicular pain M54.16 (ICD-10-CM ) 01/09 Removed 10/24 David Russell MD Radiculopathy, lumbar region Hypothyroid ism 69512101 (SNOMED CT) 07/17 Removed 10/24 David Russell MD Hypothyroidism HTN (hypertensi on) 81658957 (SNOMED CT) 07/17 Removed 10/24 David Russell MD Hypertensive disorder Dyslipidemi a 924652997 (SNOMED CT) 07/17 Removed 10/24 David Russell MD Dyslipidemia Congenital kyphosis, 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 ) 01/23 Removed 10/24 David Russell MD Congenital kyphosis, thoracic region Medications Medication Instructions Start Date Stop Date Generic Name NDC Provider LAMOTRIGINE 25 MG TABS 25 mg per day for 10 days then stop lamotrigine [id number] Helga M Rechtzigel DNP,BEAUTY CULTURIST APPRENTICE,FAMILY PRACTICE PHYSICIAN GABAPENTIN 300 MG CAPS gabapentin 32356153353 Helga Abadigel DNP,BEAUTY CULTURIST APPRENTICE,FAMILY PRACTICE PHYSICIAN LAMOTRIGINE ER 50 MG [id number] decrease to 50 mg per night 01/27 lamotrigine 35784201769 Shakeel Mckeon MD LAMOTRIGINE 25 MG TABS 25 mg per day for 10 days then stop lamotrigine 38895598870 Shakeel Mckeon MD LAMOTRIGINE ER 100 MG [id number] TAKE 1 TABLET BY MOUTH EVERY NIGHT lamotrigine 01654482991 Shakeel Mckeon MD LAMOTRIGINE ER 50 MG [id number] decrease to 50 mg per night 01/27 lamotrigine 44417955046 Shakeel Mckeon MD CETIRIZINE HCL 10 MG TABS Take 10 mg by mouth once a day cetirizine 16616105931 David Russell MD ROSUVASTATIN CALCIUM 20 MG TABS tablet by mouth rosuvastatin 35992737711 David Russell MD SM VITAMIN D3 50 MCG (2000 UT) CAPS Take 2000 unit by mouth once a day cholecalciferol (vitamin d3) 73422864624 David Russell MD FINASTERIDE 5 MG TABS tablet by mouth 03/04 finasteride 94206908699 David Russell MD LEVOTHYROXINE SODIUM 50 MCG TABS tablet by mouth 1 tablet every other day levothyroxine 85630922513 Helga Abadigel DNP,BEAUTY CULTURIST APPRENTICE,FAMILY PRACTICE PHYSICIAN DUTASTERIDE 0.5 MG CAPS dutasteride 13615647801 Helga Abadigel DNP,BEAUTY CULTURIST APPRENTICE,FAMILY PRACTICE PHYSICIAN SYNTHROID 75 MCG TABS 1 tablet every other day levothyroxine 81314580225 Helga Abadigel DNP,BEAUTY CULTURIST APPRENTICE,FAMILY PRACTICE PHYSICIAN LAMICTAL XR 100 MG [id number] Take 1 tablet by mouth every night 02/18 lamotrigine 06318644571 Helga Abadigel DNP,BEAUTY CULTURIST APPRENTICE,FAMILY PRACTICE PHYSICIAN LAMOTRIGINE ER 100 MG [id number] TAKE 1 TABLET BY MOUTH EVERY NIGHT lamotrigine 51975487411 David Russell MD LAMOTRIGINE 25 MG TABS 50 mg BID 07/17 lamotrigine 49180871372 David Russell MD LAMICTAL XR 100 MG [id number] Take 1 tablet by mouth every night 02/18 lamotrigine 71584661666 Helga Teixeira DNP,BEAUTY CULTURIST APPRENTICE,FAMILY PRACTICE PHYSICIAN LAMOTRIGINE 25 MG TABS 50 mg BID 07/17 LAMOTRIGINE 66832674714 David Russell MD LAMOTRIGINE 25 MG TABS 1 TAB IN AM AND 2 TABS IN PM FOR 2 WEEKS, THEN INCREASE TO 2 TABS BID 02/16 LAMOTRIGINE 97948138751 Helga Teixeira DNP,BEAUTY CULTURIST APPRENTICE,FAMILY PRACTICE PHYSICIAN LAMOTRIGINE 25 MG TABS 1 TABLET AT BEDTIME FOR 3 WEEKS, THEN INCREASE TO 1 TABLET TWICE DAILY 12/26 LAMOTRIGINE 92740183433 Helga Teixeira DNP,BEAUTY CULTURIST APPRENTICE,FAMILY PRACTICE PHYSICIAN LEVETIRACETAM ER 500 MG [id number] 500 mg Q HS 12/11 LEVETIRACETAM 10484259799 David Russell MD LEVETIRACETAM ER 500 MG [id number] 500 mg Q HS 12/11 LEVETIRACETAM 99182205280 David Russell MD TIMOLOL MALEATE 0.5 % SOLN PLACE 1 GTT IN OD BID 07/13 TIMOLOL MALEATE 53233866900 David Russell MD IRBESARTAN 150 MG TABS TK 1 T PO QD 07/13 IRBESARTAN 20943066871 David Russell MD LISINOPRIL TABLET 12/22 LISINOPRIL TABS 49568271668 David Russell MD TIMOLOL MALEATE 0.5 % SOLN PLACE 1 GTT IN OD BID 04/05 TIMOLOL MALEATE 47534742876 David Russell MD IRBESARTAN 150 MG TABS TK 1 T PO QD 07/13 IRBESARTAN 93686380565 David Russell MD ROSUVASTATIN CALCIUM 20 MG TABS 07/05 ROSUVASTATIN CALCIUM 90720616050 David Russell MD LEVOTHYROXINE SODIUM 50 MCG TABS 03/04 LEVOTHYROXINE SODIUM 24591467030 David Russell MD ACETAMINOPHEN 500 MG TABS Take 1 tablet by mouth every 4 hours if needed (pain). Max acetaminophen dose: 4000mg in 24 hrs. 11/15 Acetaminophen 500 Mg Tablet 08536746498 David Russell MD SENNOSIDES-DOCU SATE SODIUM 8.6-50 MG TABS Take 2 tablets by mouth 2 times daily if needed for Constipation. 11/15 Sennosides 8.6 Mg-Docusate Sodium 50 Mg Tablet 75910494901 David Russell MD SIMVASTATIN 20 MG TABS Take 1 tablet by mouth at bedtime. 11/15 Simvastatin 20 Mg Tablet 47937260611 David Russell MD FINASTERIDE 5 MG TABS 03/04 FINASTERIDE 04727184536 David Russell MD VITAMIN D3 50 MCG (1999 UT) CAPS Take 2,000 Units by mouth once daily. 06/23 Vitamin D3 2,000 Unit Capsule 07036552768 David Russell MD ACETAMINOPHEN 500 MG TABS Take 1 tablet by mouth every 4 hours if needed (pain). Max acetaminophen dose: 4000mg in 24 hrs. 06/23 Acetaminophen 500 Mg Tablet 96383471144 David Russell MD AMLODIPINE BESYLATE 5 MG TABS Take 1 tablet by mouth 2 times daily. 06/23 Amlodipine 5 Mg Tablet 16824006616 David Russell MD ASPIRIN 81 MG TBEC Take 1 tablet by mouth once daily with a meal. May resume aspirin 07/25/1806/23 Aspirin 81 Mg Tablet,Delayed Release 47247948563 David Russell MD CETIRIZINE HCL 10 MG TABS Take 10 mg by mouth once daily. 06/23 Cetirizine 10 Mg Tablet 09312450610 David Russell MD LEVOTHYROXINE SODIUM 75 MCG TABS Take 75 mcg by mouth before breakfast. 06/23 Levothyroxine 75 McG Tablet 85098372302 David Russell MD PANTOPRAZOLE SODIUM 40 MG TBEC Take 1 tablet by mouth once daily before a meal. 06/23 Pantoprazole 40 Mg Tablet,Delayed Release [id number] David Russell MD SENNOSIDES-DOCU SATE SODIUM 8.6-50 MG TABS Take 2 tablets by mouth 2 times daily if needed for Constipation. 06/23 Sennosides 8.6 Mg-Docusate Sodium 50 Mg Tablet 76029279813 David Russell MD VALIUM 5 MG TABS Take 5 MG prior to procedure. May repeat once. 06/23 DIAZEPAM 73563170619 David Russell MD SIMVASTATIN 20 MG TABS Take 1 tablet by mouth at bedtime. 06/23 Simvastatin 20 Mg Tablet 38634143729 David Russell MD VALIUM 5 MG TABS Take 5 MG prior to procedure. May repeat once. 0 11/01 DIAZEPAM 72412971376 David Russell MD LISINOPRIL TABLET 0 05 LISINOPRIL TABS 48013213519 Maureen Chakraborty APRN FAMILY PRACTICE PHYSICIAN AMLODIPINE BESYLATE 5 MG TABS Take 1 tablet by mouth 2 times daily. 11/23 Amlodipine 5 Mg Tablet 11822136635 Maureen Chakraborty APRN, CNP ASPIRIN 81 MG TBEC Take 1 tablet by mouth once daily with a meal. May resume aspirin 07/25/1811/23 Aspirin 81 Mg Tablet,Delayed Release [id number] Maureen Chakraborty APRN FAMILY PRACTICE PHYSICIAN DEXAMETHASONE 2 MG TABS With food, take 1 tablet QID x 3 days, then 1 tab TID x 3 days, then 1 tab BID x 3 days, then 1 tab daily x 3 days, then stop 11/23 Dexamethasone 2 Mg Tablet 02973891336 Maureen Chakraborty APRN FAMILY PRACTICE PHYSICIAN PANTOPRAZOLE SODIUM 40 MG TBEC Take 1 tablet by mouth once daily before a meal. 11/23 Pantoprazole 40 Mg Tablet,Delayed Release [id number] Maureen Chakraborty APRN FAMILY PRACTICE PHYSICIAN LEVETIRACETAM 500 MG TABS Take 1 tablet by mouth 2 times daily. 12/03 Levetiracetam 500 Mg Tablet 91998534813 Sybil Llanes RN LEVETIRACETAM 500 MG TABS Take 1 tablet by mouth 2 times daily. 12/03 Levetiracetam 500 Mg Tablet 35939800489 Sybil Mario Alberto RN SIMVASTATIN 20 MG TABS Take 1 tablet by mouth at bedtime. 11/15 Simvastatin 20 Mg Tablet 36078348845 System Maintenance SENNOSIDES-DOCU SATE SODIUM 8.6-50 MG TABS Take 2 tablets by mouth 2 times daily if needed for Constipation. Sennosides 8.6 Mg-Docusate Sodium 50 Mg Tablet 91946319757 System Maintenance PANTOPRAZOLE SODIUM 40 MG TBEC Take 1 tablet by mouth once daily before a meal. 02/01 Pantoprazole 40 Mg Tablet,Delayed Release 16471803292 System Maintenance LEVOTHYROXINE SODIUM 75 MCG TABS Take 75 mcg by mouth before breakfast. 02/01 Levothyroxine 75 McG Tablet 88079659502 System Maintenance LEVETIRACETAM 500 MG TABS Take 1 tablet by mouth 2 times daily. 02/01 Levetiracetam 500 Mg Tablet 17451516370 System Maintenance DEXAMETHASONE 2 MG TABS With food, take 1 tablet QID x 3 days, then 1 tab TID x 3 days, then 1 tab BID x 3 days, then 1 tab daily x 3 days, then stop 11/23 Dexamethasone 2 Mg Tablet 95628303596 System Maintenance CETIRIZINE HCL 10 MG TABS Take 10 mg by mouth once daily. 03/04 Cetirizine 10 Mg Tablet 25429166903 System Maintenance ASPIRIN 81 MG TBEC Take 1 tablet by mouth once daily with a meal. May resume aspirin 07/25/1805/03 Aspirin 81 Mg Tablet,Delayed Release [id number] System Maintenance AMLODIPINE BESYLATE 5 MG TABS Take 1 tablet by mouth 2 times daily. 02/01 Amlodipine 5 Mg Tablet 67435931624 System Maintenance ACETAMINOPHEN 500 MG TABS Take 1 tablet by mouth every 4 hours if needed (pain). Max acetaminophen dose: 4000mg in 24 hrs. 11/15 Acetaminophen 500 Mg Tablet 36491274032 System Maintenance VITAMIN D3 50 MCG (2000 UT) CAPS Take 2,000 Units by mouth once daily. 03/04 Vitamin D3 2,000 Unit Capsule 10827110961 System Maintenance SIMVASTATIN 20 MG TABS Take 1 tablet by mouth at bedtime. 06/23 Simvastatin 20 Mg Tablet 32032335145 System Maintenance SENNOSIDES-DOCU SATE SODIUM 8.6-50 MG TABS Take 2 tablets by mouth 2 times daily if needed for Constipation. Sennosides 8.6 Mg-Docusate Sodium 50 Mg Tablet 16346295948 System Maintenance PANTOPRAZOLE SODIUM 40 MG TBEC Take 1 tablet by mouth once daily before a meal. 02/01 Pantoprazole 40 Mg Tablet,Delayed Release 57014700826 System Maintenance LEVOTHYROXINE SODIUM 75 MCG TABS Take 75 mcg by mouth before breakfast. 02/01 Levothyroxine 75 McG Tablet 57897787995 System Maintenance LEVETIRACETAM 500 MG TABS Take 1 tablet by mouth 2 times daily. 02/01 Levetiracetam 500 Mg Tablet 49359523893 System Maintenance CETIRIZINE HCL 10 MG TABS Take 10 mg by mouth once daily. 02/01 Cetirizine 10 Mg Tablet 91339857364 System Maintenance ASPIRIN 81 MG TBEC Take 1 tablet by mouth once daily with a meal. May resume aspirin 07/25/1805/03 Aspirin 81 Mg Tablet,Delayed Release [id number] System Maintenance AMLODIPINE BESYLATE 5 MG TABS Take 1 tablet by mouth 2 times daily. 02/01 Amlodipine 5 Mg Tablet 53883128285 System Maintenance ACETAMINOPHEN 500 MG TABS Take 1 tablet by mouth every 4 hours if needed (pain). Max acetaminophen dose: 4000mg in 24 hrs. 06/23 Acetaminophen 500 Mg Tablet 78302698723 System Maintenance VITAMIN D3 50 MCG (2000 UT) CAPS Take 2,000 Units by mouth once daily. 06/23 Vitamin D3 2,000 Unit Capsule 77952775884 System Maintenance Medications Administered No information available. Allergies, Adverse Reactions, Alerts Observed no known allergies at Results Date Name Value Unit Range Flag Description Office Visit: DEMENTIA EVAL 08/24/18 08:31- 08/24/18 08:31 REFERRING PHYSI... FALLRSKASSES Patient screened for falls, fall risk Fall risk assessment SMOK STATUS former smoker Tob acco smoking status Replaced Document: (P) T4, F REE, TSH, VITAMIN B12, LEVETIRACETAM, METHYLMALONIC ... METHYL MALON * nmol/L methylma lonic acid (MMA), serum LEVETIRACETM * ug/mL levETIRA cetam [Mass/volume] in Serum or Plasma B-12 * pg/mL Cobalamin (Vitamin B12) [Mass/volume] in Serum or Plasma TSH 0.77 u[iU]/mL 0.40-4.50 N Thyrotropi n [Units/volume] in Serum or Plasma FRT4 1.6 0.8-1.8 N FREE T4 Internal Other: Verbal Autho rization/Emergency Contact - OBS VERBAL_EMER DONE Verbal authorization and emergency contact Internal Other: Observation data from Authorization.pdf HIECONSENT Y Consent To Release information to the Health Information Exchange ([employer]) Office Visit: Office Visit MEDS REVIEW Done Documenta tion of current medications (procedure) Plan of Care Type Date Detail Appointment 08:45 AM Shakeel Mckeon MD, [facility] [address], [address], [place], [address], Appointment 11:00 AM Carol Earl PA-C, [facility] [address], [address], [place], [address], Referral Pain Clinic Refe rral Referral Hand Surgeon Ref erral Pending order Follow up with N eurologist or PARMJIT Pending order Follow up with N eurologist or PARMJIT Pending order EEG 2hr Pending order EEG 2hr Pending order Occupational The rapy Pending order Physical Therapy Pending order Neuropsychology Evaluation Pending order EEG 2hr Pending order Follow up Pending order Follow up with N eurologist or PARMJIT Pending order Follow up in cli collin or telemedicine with provider or PARMJIT Pending order Follow up in cli collin or telemedicine Pending order Follow up in cli collin Pending order Other Referral Pending Order exclud ed from report: Pending order Other Referral Pending order MRI-Brain W/WO Pending order Obtain outside r ecords Pending order Obtain outside r ecords Pending Order exclud ed from report: Pending order Follow up PARMJIT in clinic or telemedicine Pending order CBC with Diff/Pl atelet Pending order Comp Metabolic P mishel (14) Pending order Lamotrigine (Schwartz ictal) Pending order Urinalysis Compl ete (w/Microscopic) Pending order Instructions for Staff Pending order Physical Therapy Pending order Follow up Pending order Follow up PARMJIT Pending order Lamotrigine (Schwartz ictal) Pending order MRI-Brain W/WO Pending Order exclud ed from report: Pending order Follow up PARMJIT Pending order MRI-Brain W/WO Pending order Other Radiology Pending order Instructions for Staff Pending order Lamotrigine (Schwartz ictal) Pending order Follow up PARMJIT Pending order Lamotrigine (Schwartz ictal) Pending order Physical Therapy Pending order Follow up PARMJIT Pending order Patient Instruct ions Pending order Follow up PARMJIT Pending order Follow up after testing Pending order Follow up Pending order EEG Ambulatory Pending order Follow up Pending order We will contact you with test results Pending order Consult Pending order MRI-Brain W/WO Pending order MRA-Head W/O Pending order MRA-Neck W/WO Pending order Creatinine Serum Pending order Follow up Pending order Instructions for Staff Pending order MRI-Brain W/WO Pending order MRI-Brain W/WO Pending order Patient Notifica tion Pending order Follow up Pending order Patient Instruct ions Pending order Follow up Pending order Follow up Pending order Other Test Pending order Levetiracetam (K eppra) Pending order Methylmalonic Ac id Serum (MMA) Pending order T4 Free Direct Pending order TSH Pending order Vitamin B12 Pending order Patient Notifica tion Pending order Other Referral Patient education Medications Patient education Medications Procedures Code Procedure Name Date Entry Date [id number] Documentation of current medicatio ns ORDERS Follow up SCT-[id number] Documentation of current medicatio ns ORDERS Follow up with Neurologist or PARMJIT SCT-[id number] Documentation of current medicatio ns ORDERS Follow up in clinic or telemedicine with provider or PARMJIT SCT-[id number] Documentation of current medicatio ns ORDERS Follow up in clinic [id number] Other Referral [id number] MRI-Brain W/WO ORDERS Obtain outside records 05/06 ORDERS Follow up PARMJIT in clinic or telemedicine 2 ORDERS Follow up in clinic or telemedicine 05/06 ORDERS CBC with Diff/Platelet 04/30 ORDERS Comp Metabolic Panel (14) 10/05/12 ORDERS Lamotrigine (Lamictal) 04/30 ORDERS Urinalysis Complete (w/Microscopic) 04/30 ORDERS Instructions for Staff 04/30 ORDERS Physical Therapy ORDERS Follow up [id number] Documentation of current medicatio ns ORDERS Lamotrigine (Lamictal) 10/23 ORDERS Follow up PARMJIT ORDERS Instructions for Staff 07/17 ORDERS Follow up PARMJIT [id number] Other Radiology [id number] MRI-Brain W/WO ORDERS Lamotrigine (Lamictal) 06/20 ORDERS Follow up PARMJIT SCT-[id number] Documentation of current medicatio ns ORDERS Follow up SCT-[id number] Documentation of current medicatio ns LOINC 74607-4 Fall risk assessment 02/16 ORDERS Lamotrigine (Lamictal) 02/16 ORDERS Physical Therapy ORDERS Follow up PARMJIT SCT-[id number] Documentation of current medicatio ns ORDERS Patient Instructions SCT-[id number] Documentation of current medicatio ns ORDERS Follow up PARMJIT SCT-[id number] Documentation of current medicatio ns ORDERS Follow up after testing 2019 LOINC 51845-3 Fall risk assessment SCT-[id number] Documentation of current medicatio ns ORDERS EEG Ambulatory CPT-33895 EEG Setup CPT-02400 Amb EEG 36hrs 1min-50hrs (MD) CPT-83461 Amb EEG 36hrs 1min-50hrs (Tech) 4 CPT-19657 Amb EEG 36hrs 1min-50hrs (Tech) 4 ORDERS Follow up LOINC 89609-5 Fall risk assessment 07/13 SCT-[id number] Documentation of current medicatio ns SCT-[id number] Consult ORDERS We will contact you with test results 202 [id number] MRA-Neck W/WO [id number] MRA-Head W/O [id number] MRI-Brain W/WO ORDERS Instructions for Staff 12/22 SCT-[id number] Documentation of current medicatio ns SCT-[id number] Fall risk assessment (procedure) SCT-[id number] Fall risk assessment (procedure) ORDERS Follow up SCT-366090302 Fall risk assessment (procedure) SCT-657424126 Fall risk assessment (procedure) ORDERS Creatinine Serum SCT-[id number] Documentation of current medicatio ns SCT-791015874 Fall risk assessment (procedure) SCT-057077294 Fall risk assessment (procedure) CPT-O3023B ProHance Gadolinium- based MR Contrast - 15 ml vial CPT-09677 MRI Brain W/WO [id number] MRI-Brain W/WO SCT-[id number] Fall risk assessment (procedure) SCT-[id number] Fall risk assessment (procedure) SCT-325873771 Fall risk assessment (procedure) ORDERS Follow up CPT-E0724A ProHance Gadolinium- based MR Contrast - 15 ml vial CPT-78371 MRI Brain W/WO [id number] MRI-Brain W/WO ORDERS Patient Notification ORDERS Follow up ORDERS Patient Instructions [id number] Documentation of current medicatio ns ORDERS Follow up SCT-[id number] Other Referral CPT-18755 Npsy Interview w/Provider - 1st hour 2018 CPT-25544 Npsy Interp/Rpt by Provider - 1st hour 20 08/12/04 CPT-23751 Npsy Interp/Rpt by Provider - 2 hours 201 06/21/05 CPT-79170 Npsy Test by Tech (2+ Tests) - 1st 30 min CPT-35552 Npsy Test by Tech (2+ Tests) - 2 hours 20 08/12/04 SCT-[id number] Documentation of current medicatio ns ORDERS Other Test CPT-08270 EEG EXTENDED (> 1 HOUR) (END) ORDERS Levetiracetam (Keppra) 08/24 ORDERS Methylmalonic Acid Serum (MMA) ORDERS T4 Free Direct ORDERS TSH ORDERS Vitamin B12 ORDERS Patient Notification Vital Signs Date Name Value Unit Description Height 64 [in_us] height E&M Heart Rate 68 /min pulse rate BP Diastolic 80 mm[Hg] blood pressu re, diastolic BP Systolic 155 mm[Hg] blood pressur e, systolic BMI (Body Mass Index) 24.46 kg/m2 Bod y Mass Index (Ratio) Weight Measured 142 [lb_av] weight E& M Weight Measured 142 [lb_av] weight E& M Immunizations No information available. Advance Directives No information available.
[2025-02-05 21:32] VITALS: BP 184/78; PULSE 69; RESP 16; TEMP 36.6; O2SAT 97; BMI 27.5
--- NOTE | 2025-02-05 23:14 | ED.GENADULT ---
HPI - General Adult General Chief complaint: Skin/Abscess/Foreign Body Stated complaint: Possibly infected R leg biopsy site Time Seen by Provider: 02/05/25 23:02 Source: patient Mode of arrival: ambulatory Limitations: no limitations History of Present Illness HPI narrative: 74-year-old female coming in today concerned about a biopsy side on lower extremity that she thinks might be infected. She denies increasing pain or drainage. She states that it ?looks ugly?. No systemic symptoms. Related Data Home Medications ?Medication ?Instructions ?Recorded ?Confirmed levothyroxine 150 mcg capsule 150 mcg PO QDAY 08/20/22 08/20/22 rosuvastatin 20 mg tablet 20 mg PO QDAY 08/20/22 10/26/24 cetirizine 10 mg tablet 10 mg PO DAILY 07/23/24 10/26/24 gabapentin 300 mg capsule mg PO 07/23/24 levothyroxine 50 mcg tablet 50 mcg PO Q1D 07/23/24 10/26/24 levothyroxine 75 mcg tablet 75 mcg PO Q1D 07/23/24 10/26/24 Previous Rx's ?Medication ?Instructions ?Recorded ketoconazole 2 % shampoo 1 applic topical 3XW #120 mL 09/04/23 dutasteride 0.5 mg capsule 0.5 mg PO QDAY #90 caps 01/27/24 ketorolac 10 mg tablet 10 mg PO Q8H 5 days #15 tabs 07/23/24 meclizine 25 mg tablet 25 mg PO QID #20 tabs 07/23/24 potassium chloride 20 mEq 20 meq PO DAILY #3 tabs 10/26/24 tablet,extended release Allergies Allergy/AdvReac Type Severity Reaction Status Date / Time losartan Allergy Mild Verified 10/26/24 11:03 lisinopril Allergy Cough Verified 07/23/24 14:22 Review of Systems Status of ROS: Reports: 6 or more systems reviewed and unremarkable except as noted in History and below [facility] Medical History History of benign breast biopsy (2015) ?Z98.890 - Other specified postprocedural states (ICD-10) Seborrheic dermatitis ?L21.9 - Seborrheic dermatitis, unspecified (ICD-10) Surgical History Status post cholecystectomy (1986) ?Z90.49 - Acquired absence of other specified parts of digestive tract (ICD-10) Status post breast biopsy ?Z98.890 - Other specified postprocedural states (ICD-10) History of hysterectomy (1986) ?Z90.710 - Acquired absence of both cervix and uterus (ICD-10) History of craniotomy (2017) ?Z98.890 - Other specified postprocedural states (ICD-10) History of appendectomy (1999) ?Z90.49 - Acquired absence of other specified parts of digestive tract (ICD-10) Social History Smoking Status: Never smoker Do you use any of these nicotine containing products: None How often do you have a drink containing alcohol: never AUDIT-C Alcohol total score: 0 Non-prescribed substance use: denies use service: No Exam Narrative: Exam Narrative: Well-nourished well-developed patient in no acute distress. Alert and oriented. Answers questions appropriately. Mood and affect are appropriate. Thoughts are goal oriented and rational. No tangential or magical thinking noted. Patient speaks in full sentences without needing to catch her breath. Extremities: Anterior right chan patient has a biopsy site that is approximately 9 mm in diameter. Appears to be healing appropriately. Some granulation tissue was present. Does not appear to be infected. There is no erythema or warmth present. There is no drainage. No foul odor. Appears to be healing appropriately. Const: Vital Signs, click to edit/add: Vital Signs - 24 hr 02/05/25 21:32 Temperature 97.8 F Pulse Rate [Pulse Oximeter] 69 Respiratory Rate 16 Blood Pressure [Ri ght Upper Arm] 184/78 H Pulse Oximetry 97 Oxygen Delivery Me thod Room Air Course Vital Signs Vital signs: Initial Vital Signs Temperature 97.8 F 02/05/25 21:32 Temperature Source Temporal Artery Scan 02/05/25 21:32 Pulse Rate 69 02/05/25 21:32 Respiratory Rate 16 02/05/25 21:32 Blood Pressure 184/78 H 02/05/25 21:32 Blood Pressure Mean 113 H 02/05/25 21:32 Blood Pressure Position Sitting 02/05/25 21:32 Pulse Oximetry 97 02/05/25 21:32 Oxygen Delivery Method Room Air 02/05/25 21:32 Vital Signs Temperature 97.8 F 02/05/25 21:32 Pulse Rate 69 02/05/25 21:32 Respiratory Rate 16 02/05/25 21:32 Blood Pressure 184/78 H 02/05/25 21:32 Pulse Oximetry 97 02/05/25 21:32 Oxygen Delivery Method Room Air 02/05/25 21:32 Temperature 97.8 F 02/05/25 21:32 Pulse Rate 69 02/05/25 21:32 Respiratory Rate 16 02/05/25 21:32 Blood Pressure 184/78 H 02/05/25 21:32 Pulse Oximetry 97 02/05/25 21:32 Oxygen Delivery Method Room Air 02/05/25 21:32 Medical Decision Making MDM Narrative Medical decision making narrative: 74-year-old female biopsy site anterior lower extremity, healing appropriately. Patient reassured. Discharge Plan Discharge Clinical Impression: Healing wound Patient Disposition: Home, Self-Care Condition: Stable Additional Instructions: Your biopsy site appears to be healing appropriately today. Does not appear infected. I recommend that you shower like you normally would and clean the area with warm soapy water once daily. Afterwards apply a small amount of antibiotic ointment and cover with a Band-Aid. Do this 1 time per day. In approximately 3-4 days once a scab starts to form, you can leave it open to air dry. Return to the emergency department if bright red skin extends beyond the Band-Aid. Prescriptions: No Action rosuvastatin 20 mg tablet 20 mg PO QDAY levothyroxine 150 mcg capsule 150 mcg PO QDAY ketoconazole 2 % shampoo 1 applic topical 3XW Qty: 120 2RF Rx Instructions: Apply topically to scalp while showering 2/3 times weekly. Leave in for 3-5 minutes and thoroughly wash out. cetirizine 10 mg tablet 10 mg PO DAILY levothyroxine 75 mcg tablet 75 mcg PO Q1D levothyroxine 50 mcg tablet 50 mcg PO Q1D gabapentin 300 mg capsule PO ketorolac 10 mg tablet 10 mg PO Q8H 5 Days Qty: 15 0RF meclizine 25 mg tablet 25 mg PO QID Qty: 20 0RF potassium chloride 20 mEq tablet extended release 20 meq PO DAILY Qty: 3 0RF dutasteride 0.5 mg capsule 0.5 mg PO QDAY Qty: 90 1RF Follow Up/Referrals: Courtney Treadwell DO [Primary Care Provider] - Stand Alone Forms: [employer] Info Instructions
--- OUTSIDE RECORDS SUMMARY | 2025-02-05 23:27 | XMS_ITS | Clinical Summary ---
Author Organization [facility] Address [address] [place] [address] Care Team Providers Care Racing Secretary Name Role Phone Elsewhere, Pcp Primary Care Provider Unavailabl e Source Comments Patient records contain information from all sites at [facility]. For routine questions regarding patient records, call [phone] during business hours, M-F 8:00 AM - 5:00 PM Central Time. Record requests for emergency care only can be directed to [phone] at any time.[facility] Allergies Active Allergy Reactions Criticality Noted Date [...] Overview: First diagnosed at age 10 - [place] brace used for 1 year. Other Intervertebral [...] drink = 0.6 oz pur e alcohol) [facility] Utilities Answer Date Recorded In the past 12 months has e [employer], gas, oil, or water company threatened to [...] How often do you attend chur or roman catholic services? More than 4 times per year 02/04/2023 Do you belong to any clubs o r organizations such as jehovah's witness groups, unions, fraternal or athletic groups, or [...] Answer Date Recorded PHQ-2 Score 0 2022 [facility] [place] of Occupat ional Health - Occupational Stress [...] your living situation today? I have a [facility] place to live 05/03/2024 Education Answer Date Recorded What is the highest level of school you have completed or the highest degree you have received? Bachelor's degree (e.g., BA, AB, BS) 10/19/2021 Comments No Sex and Gender Information Value Date Recorded Sex Assigned at Female 08/30/2021 12:24 PM RISK ENGINEER Legal Sex Female 8:20 PM RISK ENGINEER Gender Identity Female 08/30/2021 12:24 PM RISK ENGINEER Sexual Orientation Straight 08/30/2021 12 :24 PM RISK ENGINEER Last Filed Vital Signs Vital Sign Reading Time Taken Comments Blood Pressure 169/66 10/09/2023 5:17 PM RISK ENGINEER Pulse 61 10/09/2023 5:22 PM RISK ENGINEER Temperature 36.5 C (97.7 F) 10/09/2023 4:23 PM RISK ENGINEER Respiratory Rate 17 10/09/2023 5:22 PM RISK ENGINEER Oxygen Saturation 98% 10/09/2023 5:22 PM RISK ENGINEER Inhaled Oxygen Concentration - - Weight 70.8 kg (156 lb) 10/09/2023 3:22 PM RISK ENGINEER Height 166.3 cm (5' 5.47) 09/10/2023 12:[address] Body Mass Index 25.59 09/10/2023 12:06 PM RISK ENGINEER Plan of Treatment Upcoming Encounters Date Type Department Care Team (Late st Contact Info) Description 02/21/2025 10:45 AM CDT Office Visit Department of Orthopedic Surgery in [address] [address] Zaira Andrade, JanineP.MMela [address] [place] [address] Discharge Disposition: Home or Self Care 04/05/2025 2:00 PM CDT Office Visit Department of Dermatology in [address] [phone] Andrade Uribe M.D. [address] [place] [address] Discharge Disposition: Home or Self Care Health [...] Diagnosis Comments COLONOSCOPY Routine 10/09/2023 2:41 PM RISK ENGINEER Diarrhea Vomiting COMPREHENSIVE METABOLIC PANEL, S/P Routine 08/05/2023 3:21 PM CDT Diarrhea Vomiting THYROID FUNCTION CASCADE, S Routine 08/05/2023 3:21 PM CDT Diarrhea Vomiting from Last 3 Months or Most Recently Relevant to Health Maintenance Results * Colonoscopy (10/09/2023 2:41 PM RISK ENGINEER) 10/09/2023 2:41 PM RISK ENGINEER Impressions [employer] [employer] - 10/09/2023 4:44 PM RISK ENGINEER Post-op Diagnoses: - The examined portion of the ileum was normal. - Two 2 to 3 mm polyps in the rectum, removed with a cold biopsy forceps. Resected and retrieved. - Diverticulosis in the sigmoid, descending and transverse colon. Narrative [employer] - 10/09/2023 4:44 PM RISK ENGINEER Jerome 6 GI GI Patient Name: Anne [...] bowel preparation was evaluated using the BBPS ([place] Bowel Preparation Scale) with scores of: Right [...] [facility] * Thyroid Function [place] (08/05/2023 3:21 PM CDT) TSH, Sensitive 1.7 0.3 - 4.2 mIU/L 08/05/2023 4:19 PM CDT DTL Blood (Blood, Venous) 08/05/2023 3:21 PM CDT 08/05/2023 3:53 PM CDT Filemon Sabillon M.D. LAB BLOOD ADD-ON Final Resul t [facility] [address] [place] [address], [facility] [address] [place] [address] * (ABNORMAL) Comprehensive Metabolic Panel (08/05/2023 3:21 [...] M.D. LAB BLOOD ADD-ON Final Resul t [facility] [address] [place] [address], [facility] [address] [place] [address] from Last 3 Months or Most Recently Relevant to Health Maintenance Insurance MEDICARE [facility] [place] [address] [address] [place] [id number] Care Teams Racing Secretary Relationship Specialty Start Date End Date Elsewhere, Pcp PCP - General Internal Medicine 10/29/22
--- OUTSIDE RECORDS SUMMARY | 2025-02-05 23:27 | XMS_ITS ---
Author Organization [facility] Address [address] [place] [address] , [address] [place] [address] Phone Care Team Providers Care Engineering Illustrator Name Role Phone Shakeel Mckeon MD Conditions or Problems Problem Name Problem Code Onset Date Status Entry Date Provider Comment Standard Description Annotate Facial droop 37539119 (SNOMED CT) Resolved Shakeel Mckeon MD Weakness of face muscles Low back pain, chronic 663809624 (SNOMED CT) Active Shakeel Mckeon MD Chronic low back pain Hx of falls 713418462 (SNOMED CT) Active Shakeel Mckeon MD History of fall Hx of Benign paroxysmal positional vertigo (BPPV) 088782306 (SNOMED CT) Active Shakeel Mckeon MD H/O: vertigo Orthostatic dizziness 205245488 (SNOMED CT) Active Shakeel Mckeon MD Postural dizziness Medications No information available. Medications Administered No information available. Allergies, Adverse Reactions, Alerts No information available. Results Date Name Value Unit Range Flag Description Office Visit: Office Visit MEDS REVIEW Done Documenta tion of current medications (procedure) Plan of Care Type Date Detail Appointment 08:45 [place], [address] [place] [address] [facility], [address], [place], [address], Appointment 11:00 AM Carol Earl PA-C, [address] [place] [address], [address], [place], [address], Referral Pain Clinic Refe rral Referral Hand Surgeon Ref erral Pending order Follow up with N eurologist or PARM[facility] Pending order Follow up with N eurologist or [facility] Pending order EEG 2hr Pending order EEG 2hr Pending order Occupational The rapy Pending order Physical Therapy Pending order Neuropsychology Evaluation Pending order EEG 2hr Procedures Code Procedure Name Date Entry Date [id number] Documentation of current medicatio ns Vital Signs Date Name Value Unit Description Height 64 [in_us] height E&M Immunizations No information available. Advance Directives No information available.
--- OUTSIDE RECORDS SUMMARY | 2025-02-05 23:28 | XMS_ITS | Clinical Summary ---
Author Organization [facility] Address [address] , [address] [place] [address] Phone Care Team Providers Care Proration Clerk Name Role Phone Savi Tyson Unavailable Unavailable Conditions or Problems Problem Name Problem Code Onset Date Status Entry Date Provider Comment Standard Description Annotate Facial droop 26363182 (SNOMED CT) 12/22 Resolved 12/22 Shakeel Mckeon MD Weakness of face muscles Low back pain, chronic 183894443 (SNOMED CT) 02/04 Active 02/04 Shakeel Mckeon MD Chronic low back pain Hx of falls 234795058 (SNOMED CT) 02/04 Active 02/04 Shakeel Mckeon MD History of fall Hx of Benign paroxysmal positional vertigo (BPPV) 855881093 (SNOMED CT) 02/04 Active 02/04 Shakeel Mckeon MD H/O: vertigo Orthostatic dizziness 781800095 (SNOMED CT) 02/04 Active 02/04 Shakeel Mckeon MD Postural dizziness Seizures 08972332 (SNOMED CT) Resolved Shakeel Mckeon MD Seizure Congenital kyphosis, 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 ) 01/23 Resolved 10/24 Shakeel Mckeon MD Congenital kyphosis, thoracic region Dyslipidemi a 677948337 (SNOMED CT) 07/17 Resolved 10/24 Shakeel Mckeon MD Dyslipidemia HTN (hypertensi on) 53769462 (SNOMED CT) 07/17 Resolved 10/24 Shakeel Mckeon MD Hypertensive disorder Hypothyroid ism 99235856 (SNOMED CT) 07/17 Resolved 10/24 Shakeel Mckeon [...] Trochanteric bursitis, right hip Vitamin D deficiency 90593474 (SNOMED CT) 07/17 Resolved 10/24 Shakeel Mckeon MD Vitamin D deficiency Dizziness 797192577 (SNOMED CT) 02/16 Resolved 02/16 Shakeel Mckeon MD Dizziness Medication monitoring 009445488 (SNOMED CT) 04/30 Resolved 04/30 Shakeel Mckeon MD Medication monitoring Medication monitoring 021218055 (SNOMED CT) 04/30 Removed 04/30 Helga Randall Rechtzigel DNP,ACADEMIC SUPPORT ASSISTANT,CN P Medication monitoring Unsteady gait 46092081 (SNOMED CT) 03/04 Active 03/04 Helga Randall Rechtzigel DNP,ACADEMIC SUPPORT ASSISTANT,CN P Unsteady when walking Dizziness 174272390 (SNOMED CT) 02/16 Removed 02/16 David Russell MD Dizziness Seizures 53387938 (SNOMED CT) Removed David Russell MD Seizure Cerebral aneurysm 348811251 (SNOMED CT) 12/26 Active 12/26 David Russell MD Intracranial aneurysm Facial droop 20982893 (SNOMED CT) 12/22 Removed 12/22 David Russell MD Weakness of face muscles Cognitive disorder 537217572 (SNOMED CT) 11/24 Active 12/03 Heather Holcomb PhD Cognitive disorder Cerebral amyloid angiopathy 725320519 (SNOMED CT) 10/24 Active 10/24 David Russell MD Cerebral amyloid angiopathy Vitamin D deficiency 33445561 (SNOMED CT) 07/17 Removed 10/24 David Russell MD Vitamin D deficiency Tendinosis of the right hip gluteal tendons M70.61 (ICD-10-CM ) 04/01 Removed 10/24 David Russell MD Trochanteric bursitis, right hip 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 ) 01/23 Removed 10/24 David Rsusell MD Juvenile osteochondrosis of spine, site unspecified S/P craniotomy Z98.890 (ICD-10-CM ) Removed 10/24 David Russell MD Other specified postprocedural states Lumbar radicular pain M54.16 (ICD-10-CM ) 01/09 Removed 10/24 David Russell MD Radiculopathy, lumbar region Hypothyroid ism 30208055 (SNOMED CT) 07/17 Removed 10/24 David Russell MD Hypothyroidism HTN (hypertensi on) 79562489 (SNOMED CT) 07/17 Removed 10/24 David Russell MD Hypertensive disorder Dyslipidemi a 927689429 (SNOMED CT) 07/17 Removed 10/24 David Russell MD Dyslipidemia Congenital kyphosis, 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 ) 01/23 Removed 10/24 David Russell MD Congenital kyphosis, thoracic region Medications Medication Instructions Start Date Stop Date Generic Name NDC Provider LAMOTRIGINE 25 MG TABS 25 mg per day for 10 days then stop lamotrigine 17220621520 Helga M Rechtzigel DNP,ACADEMIC SUPPORT ASSISTANT,SENIOR BIOINFORMATICS SCIENTIST GABAPENTIN 300 MG CAPS gabapentin 30896297262 Helga Abadigel DNP,ACADEMIC SUPPORT ASSISTANT,SENIOR BIOINFORMATICS SCIENTIST LAMOTRIGINE ER 50 MG [id number] decrease to 50 mg per night 01/27 lamotrigine 43473102279 Shakeel Mckeon MD LAMOTRIGINE 25 MG TABS 25 mg per day for 10 days then stop lamotrigine 46530129631 Shakeel Mckeon MD LAMOTRIGINE ER 100 MG [id number] TAKE 1 TABLET BY MOUTH EVERY NIGHT lamotrigine 02564797321 Shakeel Mckeon MD LAMOTRIGINE ER 50 MG [id number] decrease to 50 mg per night 01/27 lamotrigine 82331157044 Shakeel Mckeon MD CETIRIZINE HCL 10 MG TABS Take 10 mg by mouth once a day cetirizine 99924818348 David Russell MD ROSUVASTATIN CALCIUM 20 MG TABS tablet by mouth rosuvastatin 66262588484 David Russell MD SM VITAMIN D3 50 MCG (2000 UT) CAPS Take 2000 unit by mouth once a day cholecalciferol (vitamin d3) 42174818694 David Russell MD FINASTERIDE 5 MG TABS tablet by mouth 03/04 finasteride 40252090599 David Russell MD LEVOTHYROXINE SODIUM 50 MCG TABS tablet by mouth 1 tablet every other day levothyroxine 93196842920 Helga Abadigel DNP,ACADEMIC SUPPORT ASSISTANT,SENIOR BIOINFORMATICS SCIENTIST DUTASTERIDE 0.5 MG CAPS dutasteride 97776046245 Helga Abadigel DNP,ACADEMIC SUPPORT ASSISTANT,SENIOR BIOINFORMATICS SCIENTIST SYNTHROID 75 MCG TABS 1 tablet every other day levothyroxine 13417989016 Helga Abadigel DNP,ACADEMIC SUPPORT ASSISTANT,SENIOR BIOINFORMATICS SCIENTIST LAMICTAL XR 100 MG [id number] Take 1 tablet by mouth every night 02/18 lamotrigine 96402296158 Helga Abadigel DNP,ACADEMIC SUPPORT ASSISTANT,SENIOR BIOINFORMATICS SCIENTIST LAMOTRIGINE ER 100 MG [id number] TAKE 1 TABLET BY MOUTH EVERY NIGHT lamotrigine 02567868045 David Russell MD LAMOTRIGINE 25 MG TABS 50 mg BID 07/17 lamotrigine 82641094844 David Russell MD LAMICTAL XR 100 MG [id number] Take 1 tablet by mouth every night 02/18 lamotrigine 54983958969 Helga Teixeira DNP,ACADEMIC SUPPORT ASSISTANT,SENIOR BIOINFORMATICS SCIENTIST LAMOTRIGINE 25 MG TABS 50 mg BID 07/17 LAMOTRIGINE 49448918606 David Russell MD LAMOTRIGINE 25 MG TABS 1 TAB IN AM AND 2 TABS IN PM FOR 2 WEEKS, THEN INCREASE TO 2 TABS BID 02/16 LAMOTRIGINE 31950384594 Helga Teixeira DNP,ACADEMIC SUPPORT ASSISTANT,SENIOR BIOINFORMATICS SCIENTIST LAMOTRIGINE 25 MG TABS 1 TABLET AT BEDTIME FOR 3 WEEKS, THEN INCREASE TO 1 TABLET TWICE DAILY 12/26 LAMOTRIGINE 63681705137 Helga Teixeira DNP,ACADEMIC SUPPORT ASSISTANT,SENIOR BIOINFORMATICS SCIENTIST LEVETIRACETAM ER 500 MG [id number] 500 mg Q HS 12/11 LEVETIRACETAM 01231077118 David Russell MD LEVETIRACETAM ER 500 MG [id number] 500 mg Q HS 12/11 LEVETIRACETAM 35033584648 David Russell MD TIMOLOL MALEATE 0.5 % SOLN PLACE 1 GTT IN OD BID 07/13 TIMOLOL MALEATE 00083334872 David Russell MD IRBESARTAN 150 MG TABS TK 1 T PO QD 07/13 IRBESARTAN 57427432792 David Russell MD LISINOPRIL TABLET 12/22 LISINOPRIL TABS 74924835083 David Russell MD TIMOLOL MALEATE 0.5 % SOLN PLACE 1 GTT IN OD BID 04/05 TIMOLOL MALEATE 52926018962 David Russell MD IRBESARTAN 150 MG TABS TK 1 T PO QD 07/13 IRBESARTAN 63045766224 David Russell MD ROSUVASTATIN CALCIUM 20 MG TABS 07/05 ROSUVASTATIN CALCIUM 75510407254 David Russell MD LEVOTHYROXINE SODIUM 50 MCG TABS 03/04 LEVOTHYROXINE SODIUM 35549999609 David Russell MD ACETAMINOPHEN 500 MG TABS Take 1 tablet by mouth every 4 hours if needed (pain). Max acetaminophen dose: 4000mg in 24 hrs. 11/15 Acetaminophen 500 Mg Tablet 81457838164 David Russell MD SENNOSIDES-DOCU SATE SODIUM 8.6-50 MG TABS Take 2 tablets by mouth 2 times daily if needed for Constipation. 11/15 Sennosides 8.6 Mg-Docusate Sodium 50 Mg Tablet 07741685475 David Russell MD SIMVASTATIN 20 MG TABS Take 1 tablet by mouth at bedtime. 11/15 Simvastatin 20 Mg Tablet 33367794437 David Russell MD FINASTERIDE 5 MG TABS 03/04 FINASTERIDE 86465152291 David Russell MD VITAMIN D3 50 MCG (1999 UT) CAPS Take 2,000 Units by mouth once daily. 06/23 Vitamin D3 2,000 Unit Capsule 06792516682 David Russell MD ACETAMINOPHEN 500 MG TABS Take 1 tablet by mouth every 4 hours if needed (pain). Max acetaminophen dose: 4000mg in 24 hrs. 06/23 Acetaminophen 500 Mg Tablet 34576187227 David Russell MD AMLODIPINE BESYLATE 5 MG TABS Take 1 tablet by mouth 2 times daily. 06/23 Amlodipine 5 Mg Tablet 85747805157 David Russell MD ASPIRIN 81 MG TBEC Take 1 tablet by mouth once daily with a meal. May resume aspirin 07/25/1806/23 Aspirin 81 Mg Tablet,Delayed Release 48271946574 David Russell MD CETIRIZINE HCL 10 MG TABS Take 10 mg by mouth once daily. 06/23 Cetirizine 10 Mg Tablet 54886667056 David Russell MD LEVOTHYROXINE SODIUM 75 MCG TABS Take 75 mcg by mouth before breakfast. 06/23 Levothyroxine 75 McG Tablet 16936376705 David Russell MD PANTOPRAZOLE SODIUM 40 MG TBEC Take 1 tablet by mouth once daily before a meal. 06/23 Pantoprazole 40 Mg Tablet,Delayed Release 68911503397 David Russell MD SENNOSIDES-DOCU SATE SODIUM 8.6-50 MG TABS Take 2 tablets by mouth 2 times daily if needed for Constipation. 06/23 Sennosides 8.6 Mg-Docusate Sodium 50 Mg Tablet 56395925161 David Russell MD VALIUM 5 MG TABS Take 5 MG prior to procedure. May repeat once. 06/23 DIAZEPAM 95868734251 David Russell MD SIMVASTATIN 20 MG TABS Take 1 tablet by mouth at bedtime. 06/23 Simvastatin 20 Mg Tablet 12039782926 David Russell MD VALIUM 5 MG TABS Take 5 MG prior to procedure. May repeat once. 0 11/01 DIAZEPAM 14423993235 David Russell MD LISINOPRIL TABLET 0 05 LISINOPRIL TABS 45384846567 Maureen Chakraborty APRN SENIOR BIOINFORMATICS SCIENTIST AMLODIPINE BESYLATE 5 MG TABS Take 1 tablet by mouth 2 times daily. 11/23 Amlodipine 5 Mg Tablet 36418526982 Maureen Chakraborty APRN, CNP ASPIRIN 81 MG TBEC Take 1 tablet by mouth once daily with a meal. May resume aspirin 07/25/1811/23 Aspirin 81 Mg Tablet,Delayed Release 25051829930 Maureen Chakraborty APRN SENIOR BIOINFORMATICS SCIENTIST DEXAMETHASONE 2 MG TABS With food, take 1 tablet QID x 3 days, then 1 tab TID x 3 days, then 1 tab BID x 3 days, then 1 tab daily x 3 days, then stop 11/23 Dexamethasone 2 Mg Tablet 08669056895 Maureen Chakraborty APRN SENIOR BIOINFORMATICS SCIENTIST PANTOPRAZOLE SODIUM 40 MG TBEC Take 1 tablet by mouth once daily before a meal. 11/23 Pantoprazole 40 Mg Tablet,Delayed Release 19950286450 Maureen Chakraborty APRN SENIOR BIOINFORMATICS SCIENTIST LEVETIRACETAM 500 MG TABS Take 1 tablet by mouth 2 times daily. 12/03 Levetiracetam 500 Mg Tablet 33326249282 Sybil Llanes RN LEVETIRACETAM 500 MG TABS Take 1 tablet by mouth 2 times daily. 12/03 Levetiracetam 500 Mg Tablet 49000247779 Sybil Mario Alberto RN SIMVASTATIN 20 MG TABS Take 1 tablet by mouth at bedtime. 11/15 Simvastatin 20 Mg Tablet 87959905728 System Maintenance SENNOSIDES-DOCU SATE SODIUM 8.6-50 MG TABS Take 2 tablets by mouth 2 times daily if needed for Constipation. Sennosides 8.6 Mg-Docusate Sodium 50 Mg Tablet 53545192918 System Maintenance PANTOPRAZOLE SODIUM 40 MG TBEC Take 1 tablet by mouth once daily before a meal. 02/01 Pantoprazole 40 Mg Tablet,Delayed Release 23657031809 System Maintenance LEVOTHYROXINE SODIUM 75 MCG TABS Take 75 mcg by mouth before breakfast. 02/01 Levothyroxine 75 McG Tablet 34519967846 System Maintenance LEVETIRACETAM 500 MG TABS Take 1 tablet by mouth 2 times daily. 02/01 Levetiracetam 500 Mg Tablet 15541443227 System Maintenance DEXAMETHASONE 2 MG TABS With food, take 1 tablet QID x 3 days, then 1 tab TID x 3 days, then 1 tab BID x 3 days, then 1 tab daily x 3 days, then stop 11/23 Dexamethasone 2 Mg Tablet 13211631436 System Maintenance CETIRIZINE HCL 10 MG TABS Take 10 mg by mouth once daily. 03/04 Cetirizine 10 Mg Tablet 95182385488 System Maintenance ASPIRIN 81 MG TBEC Take 1 tablet by mouth once daily with a meal. May resume aspirin 07/25/1805/03 Aspirin 81 Mg Tablet,Delayed Release 82148251636 System Maintenance AMLODIPINE BESYLATE 5 MG TABS Take 1 tablet by mouth 2 times daily. 02/01 Amlodipine 5 Mg Tablet 68465346046 System Maintenance ACETAMINOPHEN 500 MG TABS Take 1 tablet by mouth every 4 hours if needed (pain). Max acetaminophen dose: 4000mg in 24 hrs. 11/15 Acetaminophen 500 Mg Tablet 55494329653 System Maintenance VITAMIN D3 50 MCG (2000 UT) CAPS Take 2,000 Units by mouth once daily. 03/04 Vitamin D3 2,000 Unit Capsule 95956494003 System Maintenance SIMVASTATIN 20 MG TABS Take 1 tablet by mouth at bedtime. 06/23 Simvastatin 20 Mg Tablet 62928335323 System Maintenance SENNOSIDES-DOCU SATE SODIUM 8.6-50 MG TABS Take 2 tablets by mouth 2 times daily if needed for Constipation. Sennosides 8.6 Mg-Docusate Sodium 50 Mg Tablet 52294148445 System Maintenance PANTOPRAZOLE SODIUM 40 MG TBEC Take 1 tablet by mouth once daily before a meal. 02/01 Pantoprazole 40 Mg Tablet,Delayed Release 72487086999 System Maintenance LEVOTHYROXINE SODIUM 75 MCG TABS Take 75 mcg by mouth before breakfast. 02/01 Levothyroxine 75 McG Tablet 58939737165 System Maintenance LEVETIRACETAM 500 MG TABS Take 1 tablet by mouth 2 times daily. 02/01 Levetiracetam 500 Mg Tablet 07137112607 System Maintenance CETIRIZINE HCL 10 MG TABS Take 10 mg by mouth once daily. 02/01 Cetirizine 10 Mg Tablet 18465157868 System Maintenance ASPIRIN 81 MG TBEC Take 1 tablet by mouth once daily with a meal. May resume aspirin 07/25/1805/03 Aspirin 81 Mg Tablet,Delayed Release 04741314293 System Maintenance AMLODIPINE BESYLATE 5 MG TABS Take 1 tablet by mouth 2 times daily. 02/01 Amlodipine 5 Mg Tablet 63187611774 System Maintenance ACETAMINOPHEN 500 MG TABS Take 1 tablet by mouth every 4 hours if needed (pain). Max acetaminophen dose: 4000mg in 24 hrs. 06/23 Acetaminophen 500 Mg Tablet 23783071258 System Maintenance VITAMIN D3 50 MCG (2000 UT) CAPS Take 2,000 Units by mouth once daily. 06/23 Vitamin D3 2,000 Unit Capsule 37506176350 System Maintenance Medications Administered No information available. [...] Release information to the [employer] Information [employer] ([employer].Forward) Office Visit: Office Visit MEDS REVIEW Done Documenta tion of current medications (procedure) Plan of Care Type Date Detail Appointment 08:45 AM Shakeel Mckeon MD, [facility] [address] [employer], [address], [place], [address], Appointment 11:00 AM Carol Earl PA-C, [facility] [facility], [address], [place], [address], Referral Pain Clinic Refe rral Referral Hand [...] Procedures Code Procedure Name Date Entry Date [facility]-[id number] Documentation of current medicatio ns ORDERS Follow up SCT-[id number] Documentation of current medicatio ns ORDERS Follow up with Neurologist or [facility] SCT-[id number] Documentation of current medicatio ns ORDERS Follow up in clinic or telemedicine with provider or [facility] SCT-[id number] Documentation of current medicatio ns ORDERS Follow up in clinic [facility]-[id number] Other Referral [id number] MRI-Brain W/WO ORDERS Obtain outside records 05/06 ORDERS Follow up [facility] in clinic or telemedicine 2 ORDERS Follow up in clinic or telemedicine 05/06 ORDERS CBC with Diff/Platelet 04/30 ORDERS Comp Metabolic Panel (14) 10/05/12 ORDERS Lamotrigine (Lamictal) 04/30 ORDERS Urinalysis Complete (w/Microscopic) 04/30 ORDERS Instructions for Staff 04/30 ORDERS Physical Therapy ORDERS Follow up [facility]-[id number] Documentation of current medicatio ns ORDERS Lamotrigine (Lamictal) 10/23 ORDERS Follow up [facility] ORDERS Instructions for Staff 07/17 ORDERS Follow up [facility] [id number] Other Radiology [id number] MRI-Brain W/WO ORDERS Lamotrigine (Lamictal) 06/20 ORDERS Follow up [facility] SCT-[id number] Documentation of current medicatio ns ORDERS Follow up SCT-[id number] Documentation of current medicatio ns LOINC 29951-0 Fall risk assessment 02/16 ORDERS Lamotrigine (Lamictal) 02/16 ORDERS Physical Therapy ORDERS Follow up [facility] SCT-[id number] Documentation of current medicatio ns ORDERS Patient Instructions SCT-[id number] Documentation of current medicatio ns ORDERS Follow up [facility] SCT-[id number] Documentation of current medicatio ns ORDERS Follow up after testing 2019 LOINC 83159-2 Fall risk assessment SCT-[id number] Documentation of current medicatio ns ORDERS EEG Ambulatory CPT-46162 EEG Setup CPT-25182 Amb EEG 36hrs 1min-50hrs (MD) CPT-89537 Amb EEG 36hrs 1min-50hrs (Tech) 4 CPT-01294 Amb EEG 36hrs 1min-50hrs (Tech) 4 ORDERS Follow up LOINC 18928-4 Fall risk assessment 07/13 SCT-[id number] Documentation of current medicatio ns SCT-[id number] Consult ORDERS We will contact you with test results 202 [id number] MRA-Neck W/WO [id number] MRA-Head W/O [id number] MRI-Brain W/WO ORDERS Instructions for Staff 12/22 SCT-[id number] Documentation of current medicatio ns SCT-[id number] Fall risk assessment (procedure) SCT-[id number] Fall risk assessment (procedure) ORDERS Follow up SCT-[id number] Fall risk assessment (procedure) SCT-[id number] Fall risk assessment (procedure) ORDERS Creatinine Serum SCT-[id number] Documentation of current medicatio ns SCT-[id number] Fall risk assessment (procedure) SCT-[id number] Fall risk assessment (procedure) CPT-R1329E ProHance Gadolinium- based MR Contrast - 15 ml vial CPT-94859 MRI Brain W/WO [id number] MRI-Brain W/WO SCT-[id number] Fall risk assessment (procedure) SCT-[id number] Fall risk assessment (procedure) SCT-[id number] Fall risk assessment (procedure) ORDERS Follow up CPT-V4353U ProHance Gadolinium- based MR Contrast - 15 ml vial CPT-89074 MRI Brain W/WO [id number] MRI-Brain W/WO ORDERS Patient Notification ORDERS Follow up ORDERS Patient Instructions [facility]-[id number] Documentation of current medicatio ns ORDERS Follow up SCT-[id number] Other Referral CPT-95217 Npsy Interview w/Provider - 1st hour 2018 CPT-93411 Npsy Interp/Rpt by Provider - 1st hour 20 08/12/04 CPT-63618 Npsy Interp/Rpt by Provider - 2 hours 201 06/21/05 CPT-60230 Npsy Test by Tech (2+ Tests) - 1st 30 min CPT-35920 Npsy Test by Tech (2+ Tests) - 2 hours 20 08/12/04 SCT-[id number] Documentation of current medicatio ns ORDERS Other Test CPT-54232 EEG EXTENDED (> 1 HOUR) (END) ORDERS [...]
--- OUTSIDE RECORDS SUMMARY | 2025-02-05 23:28 | XMS_ITS | Clinical Summary ---
Author Organization [facility] Address [facility] [place] [address] Care Team Providers Care Quality Worker Name Role Phone Tamir Treadwellher Helga PILLAI Primary Care Provider [phone] Allergies Active Allergy Reactions Criticality Noted Date [...] femurs 06/09/2019 Overview (06/09/2019): 2016 dexa at [facility]: Osteopenia worse at right femoral neck T [...] (01/24/2016): First diagnosed at age 10 - [place] brace used for 1 year. Lumbar disc bulging 01/09/2015 Lumbar facet arthropathy 01/09/2015 Lumbar radicular pain 01/09/2015 Tendinosis of the right hip gluteal tendons 03/20 S/P craniotomy Resolved Problems Problem Noted Date Diagnosed Date Resolved Date Ventricular tachycardia 12/10/2023 01/0 03/2025 Hip tendonitis 04/01/2014 12/19/2014 Encounters Date Type Department Care Team Description 01/28/2025 Orders Only [facility] Scanner 1 scan: (1-Ord) [facility], SHAVE BIOPSY, 01/28/2025 01/10/2025 3:30 PM CDT Ancillary Procedure [facility] [address] [facility] [id number] 01/10/2025 Travel 01/06/2025 11:15 AM CDT Office Visit [facility] [address] [place] [address] Courtney Treadwell DO Medication Management (Potassium reaction); Blood Pressure 01/06/2025 Travel 01/01/2025 Travel 11/15/2024 1:05 PM AFFILIATE MARKETING SPECIALIST Office Visit [facility] [address] [place] [address] Courtney Treadwell DO Follow Up; Skin Problem (itching.) 11/15/2024 Travel 11/11/2024 2:30 PM AFFILIATE MARKETING SPECIALIST Orders Only [facility] [address] [facility] [address] [place], [place] [facility] 11/10/2024 Travel from Last [...] Sex Assigned at Female 11/01/2021 6:34 PM AFFILIATE MARKETING SPECIALIST Legal Sex Female 5:25 AM AFFILIATE MARKETING SPECIALIST Gender Identity Female 11/01/2021 6:34 PM AFFILIATE MARKETING SPECIALIST Sexual Orientation Straight 11/01/2021 6: 34 PM AFFILIATE MARKETING SPECIALIST Occupation Industry Job Start Date Job End [...] Body Mass Index 26.97 09/20/2024 3:05 PM AFFILIATE MARKETING SPECIALIST Plan of Treatment Upcoming Encounters Date Type Department Care Team (Late st Contact Info) Description 02/21/2025 11:15 AM CDT Nurse/Clinic Staff Only [facility] [address] [place] [address] Health Maintenance Due Date Last Done Comments [...] history exists Medical Devices Implanted Type Area Brand Advocate Device Identifier Shelf Expiration Date Model / Serial / Lot Dura Neuro 2x2in Durepair Sut - [id number] Implanted:Qty: 1 on 07/15/2018 by Dustin Doshi MD at [facility] Left: Cranium [employer] 07/19/2020 [id number]# / / [id number] Screw Neuro 4mm Matrixneuro Slf Drill Titnm - [id number] Implanted:Qty: 18 on 07/15/2018 by Dustin Doshi MD at [facility] Left: Cranium J And Kory Depuy CMF [id number] 4.01# / / Screw Facial 4mm Matrixneuro Emergency - [id number] Implanted:Qty: 1 on 07/15/2018 by Dustin Doshi MD at [facility] Left: Cranium Kory And Kory Hutchisonuy CMF [id number] 4.01# / / Plate Facial [id number] 4hole Synthes Box - [id number] Implanted:Qty: 1 on 07/15/2018 by Dustin Doshi MD at [facility] Left: Cranium Kory And Kory Depuy CMF [id number]# / / Haily Hole Cover Neuro 24mm Synthes Low Pro Titnm - [id number] Implanted:Qty: 4 on 07/15/2018 by Dustin Doshi MD at [facility] Left: Cranium Kory And Kory Depuy CMF [id number]# / / Procedures Procedure Name Priority Date/Time Associated Diagnosis Comments SCAN-OPERATIVE/PROC EDURE REPORT 01/28/2025 12:00 AM CDT MR ANGIO HEAD BRAIN WO Routine 01/10/2025 4:48 PM CDT Cerebral aneurysm (HC) POTASSIUM Routine 11/15/2024 2:23 PM AFFILIATE MARKETING SPECIALIST Hypokalemia TSH Routine 11/15/2024 2:23 PM AFFILIATE MARKETING SPECIALIST History of Rody thyroiditis Hypothyroidism (acquired) HEMOGLOBIN Routine 11/15/2024 2:23 PM AFFILIATE MARKETING SPECIALIST Fatigue, unspecified type POTASSIUM Routine 11/11/2024 2:52 PM AFFILIATE MARKETING SPECIALIST Hypokalemia LIPID PANEL W REFLEX MEASURED LDL Routine 09/20/2024 3:55 PM AFFILIATE MARKETING SPECIALIST Hyperlipidemia, unspecified hyperlipidemia type XR DXA BONE DENSITY 2 SITES AXIAL Routine 09/23/2023 9:45 AM AFFILIATE MARKETING SPECIALIST Osteopenia, unspecified location Other specified disorders of [...] Final Result * TSH (11/15/2024 2:23 PM AFFILIATE MARKETING SPECIALIST) TSH 0.94 0.40 - 4.50 mIU/L [facility] [place] Blood BLOOD SPECIMEN / Unknown 11/15/2024 2:23 PM AFFILIATE MARKETING SPECIALIST 11/15/2024 2:23 PM AFFILIATE MARKETING SPECIALIST [facility] Treadwell DO CHEMISTRY Final Resu lt [employer] [facility] [address] [place] [address], [facility] [address] [place] [address] * HEMOGLOBIN (11/15/2024 2:23 PM AFFILIATE MARKETING SPECIALIST) Pathologist [facility] HEMOGLOBIN 12.7 11.7 - 15.5 g/dL [facility] [place] Blood BLOOD SPECIMEN / Unknown 11/15/2024 2:23 PM AFFILIATE MARKETING SPECIALIST 11/15/2024 2:23 PM AFFILIATE MARKETING SPECIALIST Courtney Treadwell DO HEMATOLOGY Final Resu lt [employer] [facility] [address] [place] [place] [address], [place] [phone] [facility] [address] [place] [address] * POTASSIUM (11/15/2024 2:23 PM AFFILIATE MARKETING SPECIALIST) Only the most recent of2 resultswithin the time period is included. Pathologist [facility] POTASSIUM 4.1 3.5 - 5.3 mmol/L [facility] [employer] [facility] [place] Blood BLOOD SPECIMEN / Unknown 11/15/2024 2:23 PM AFFILIATE MARKETING SPECIALIST 11/15/2024 2:23 PM AFFILIATE MARKETING SPECIALIST Courtney Partida Mile DO CHEMISTRY Final Resu lt [employer] [facility] [address] [place] [address], [facility] [address] [place] [address] * (ABNORMAL) LIPID PANEL W REFLEX MEASURED LDL (09/20/2024 3:55 PM AFFILIATE MARKETING SPECIALIST) CHOLESTEROL, TOTAL 190 <200 mg/dL [facility] [place] HDL CHOLESTEROL 53 > OR = 50 mg/dL [facility]W odor[facility] S[facility] TRIGLYCERIDES 212(H) <150 mg/dL [facility] Comment: If a non-fasting specimen was collected, consider repeat triglyceride testing on a fasting specimen if clinically indicated. Rodolfo et al. J. of Clin. Lipidol. 2015;9:129-169. LDL-CHOLESTEROL 104(H) mg/dL (calc) [facility] Comment: Reference range: <100 Desirable range <100 mg/dL for primary prevention; <70 mg/dL for patients with CHD or diabetic patients with > or = 2 CHD risk factors. LDL-C is now calculated using the Abraham-Carlene calculation, which is a validated novel method providing better accuracy than the Friedewald equation in the estimation of LDL-C. Abraham ASHLEY et al. MANJIT. 2013;310(19): 1899-7346 (http://education.Voodle - Memories in Motion/faq/LDN726) CHOL/HDLC RATIO 3.6 <5.0 (calc) [facility]W [facility] NON HDL CHOLESTEROL 137(H) <130 mg/dL (calc) [facility] Comment: For patients with diabetes plus 1 major ASCVD risk factor, treating to a non-HDL-C goal of <100 mg/dL (LDL-C of <70 mg/dL) is considered a therapeutic option. Blood BLOOD SPECIMEN / Unknown 09/20/2024 3:55 PM AFFILIATE MARKETING SPECIALIST 09/20/2024 3:55 PM AFFILIATE MARKETING SPECIALIST Courtney Treadwell DO CHEMISTRY Final Resu lt [employer] [facility] [address] [place] [address], [facility] [address] [place] [address] * (ABNORMAL) XR DXA BONE DENSITY 2 SITES AXIAL (09/23/2023 9:45 AM AFFILIATE MARKETING SPECIALIST) Anatomical Region Laterality Modality Spine, HIPS, HIPL, HIPR Other Impressions 09/29/2023 7:54 AM AFFILIATE MARKETING SPECIALIST Osteopenia. RECOMMENDATIONS: The National Osteoporosis Foundation recommends [...] to assess therapeutic efficacy. Danelle Monreal PA-C [facility] 09/29/2023 Narrative 09/29/2023 7:54 AM AFFILIATE MARKETING SPECIALIST For Patients: Results are automatically released to your [facility] account once available, in compliance with federal regulations. This means that you may see your results before your provider has had a chance to review them. Please allow 2-3 business days for your provider to comment on the results. XR DXA Bone Mineral Density (BMD) EXAM LOCATION: [address] [address] PATIENT NAME: Anne Roque DATE OF : [...] two scanners are made by the same transit planning director. PROCEDURE: Dual-energy x-ray absorptiometry performed with routine [...] Maintenance Insurance MEDICARE PART A HB ONLY [facility] FED EMP MEDICARE PB ONLY MEDICARE PART B HB ONLY Advance Directives Documents on File Type Date Recorded Patient Material Control Clerk Expl anation POLST 11/13/2021 7:38 AM POL, [facility], 11/06/2021 Healthcare Directive 07/15/2018 12:00 AM * Full Code (Latest Code Status on File) Date Activated Date Inactivated Comments 07/15/2018 6:17 AM 07/20/2018 4:14 PM Question Answer Comments Code Status Discussion: Not DiscussedPer Advance Care Plan Care Teams Quality Worker Relationship Specialty Start Date End Date Courtney Treadwell DO [address] [place] [address] PCP - General Family Practice 10/27/18
--- OUTSIDE RECORDS SUMMARY | 2025-02-05 23:28 | XMS_ITS ---
Author Organization [facility] [place] Care Team Providers Care Precision Lens Grinder Name Role Phone Jayda Zaragoza Unavailable Unavailable Gold George Unavailable Unavailable Allergies and adverse reactions No Known Allergies Care Team Name Role Address Phone Organization Dates Gold George PCP [facility] [address] [place] [address], [address], [place], [facility] (Office): [facility] 07/20/2018 - 08/26/2018 Jayda Zaragoza Attending Physician [facility] [address] [place] [address] [address], [place], [facility] (Office[facility] : [facility] 07/20/2018 - 08/26/2018 Immunizations Immunization Status Vaccine Details Vaccine Code CodeSystem Date Notes Influenza completed Influenza, high-dose, split virus, quadrivalent, injectable, preservative free lotNumber: [id number] expiry: 04/18/2019 Mfg: [employer] Given 0.5 ml Left Deltoid [...] completed tuberculin skin test; unspecified formulation lotNumber: [id number] expiry: 09/04/2020 Mfg: sanofi pasteur Given 0.1 ml Right Forearm intradermally Step 2 of Multi-step with next step required 98 CVX created date: 08/04/2018 consent date: 08/04/2018 administer ed date: 08/04/2018 Results read at 0749 on 08/06 by RADHA Hayward TB 2 Step Mantoux Skin Test completed tuberculin skin test; unspecified formulation lotNumber: [id number] expiry: 09/04/2020 Mfg: sanofi pasteur Given 0.1 ml Left Forearm intradermally Step 1 of Multi-step with next step required 98 CVX created date: 07/21/2018 consent date: 07/21/2018 administer ed date: 07/21/2018 Results read at 1138 on 07/23/18 by RADHA Hayward PPSV23, Pneumovax 23 completed created date: 07/20/2018 administer ed date: 09/26/2016 PCV13, [id number] completed created date: 07/20/2018 administer ed date: [...] ENCOUNTER FOR OTHER SPECIFIED SURGICAL AFTERCARE 07/29/[address] active 2 AGE-RELATED OSTEOPOROSIS WITHOUT CURRENT PATHOLOGICAL FRACTURE 07/20/[address] active 3 ALLERGIC RHINITIS, UNSPECIFIED 07/20/[address] active 4 CONSTIPATION, UNSPECIFIED 07/20/[address] active 5 ESSENTIAL (PRIMARY) HYPERTENSION 07/20/[address] active 6 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 07/20/[address] active 7 HYPERLIPIDEMIA, UNSPECIFIED 07/20/[address] active 8 HYPOTHYROIDISM, UNSPECIFIED 07/20/[address] active 9 OTHER REDUCED MOBILITY 07/20/[address] active 10 UNSPECIFIED SENSORINEURAL HEARING LOSS 07/20/[address] active 11 UNSTEADINESS ON FEET 07/20/[address] active 12 VITAMIN D DEFICIENCY, UNSPECIFIED 07/20/[address] active Reason for Referral No Reasons for Referral Entered Social History Social History Observation Description Start Date End Date Code Code System Current Smoking Status Tobacco smoking consumption unknown 131038628 SNOMED CT Sex Assigned At Female 1950 46445-7 [facility] Vital Signs Code Code System Vitals Name Values and Units Timing Information 8462-4 [facility] Blood Pressure-Diastolic Value=68 Un its=mmHg 08/26/2018 8480-6 [facility] Blood Pressure-Systolic Woovm=587 Un its=mmHg 08/26/2018 8867-4 [facility] Heart rate Value=81.0 Units=/min 04/2018 10594-1 [facility] Weight Tlndo=993.8 Units=Lbs 02/2018 9279-1 [facility] Respiratory Rate Value=16.0 Units=/m in 08/20/2018 8310-5 [facility] Body Temperature Value=97.7 Units= F 08/20/2018 53513-8 [facility] O2 % BldC Oximetry Value=97.0 Units= % 08/20/2018 14654-6 [facility] Pain Level Value=0.0 08/19/2018 8302-2 [facility] Height Value=64.0 Units=Inches 07/21/2018
== END 2025-02-05 23:31 | disposition home or self-care (01) ==
LOC: ED 23:25
PROVIDERS: Emergency Provider Family Medicine; PCP Family Medicine
DX: S81.801A Unspecified open wound, right lower leg, initial encounter (principal)
CPT/HCPCS: 99283

== ENCOUNTER 2025-03-18 15:16 | Outpatient (CLI) | payer MEDICARE, BC, SELFPAY ==
--- NOTE | 2025-03-18 15:30 | CRLHL7_ITS ---
For Patients: As a result of the Century Cures Act, medical imaging exams and procedure reports are released immediately into your electronic medical record. You may view this report before your referring provider. If you have questions, please contact your health care provider. INDICATION: Dizziness. COMPARISON: 05/08/2022. TECHNIQUE: Multiplanar T1, T2, FLAIR and diffusion-weighted imaging.. Post gadolinium T1 weighted sequences. Additional pre and post and sequences of the skullbase and IAC`s. Gadolinium 20 cc IV. FINDINGS: Stable postop changes of left frontal craniotomy and underlying encephalomalacia gliosis of the anterior left frontal lobe. Ex vacuo dilatation of the anterior horn of left lateral ventricle. Mild generalized volume loss. Patchy T2/FLAIR signal hypertensive within the white matter postop hemispheres consistent with chronic deep white matter small ischemic changes. No intracranial hemorrhage. No abnormal ventricular dilatation. Intracranial vascular flow voids are preserved. No mass effect or midline shift. No restricted diffusion to suggest acute ischemia. No abnormal enhancement or enhancing lesions within the brain parenchyma. Dedicated sequence of the skullbase and IAC`s demonstrates normal course of cranial nerves 7 and 8 from the root entry zone to the fundus of the IAC`s. Normal fluid signal within the cochlea and vestibule. Normal root entry zone of the bilateral trigeminal nerves. No abnormal mass or enhancement within cerebellopontine angles or IAC`s. Bilateral orbits are unremarkable. Normal appearing sella. Visualized paranasal sinuses and mastoid air cells are unremarkable. IMPRESSION: 1. Stable postop changes left frontal craniotomy and underlying encephalomalacia gliosis of the anterior left frontal lobe. 2. Chronic deep white matter small vessel ischemic changes 3. No abnormal enhancement or enhancing lesions 4. Dedicated sequences of the skull base and IAC`s demonstrates normal course of cranial nerves. No abnormal mass or enhancement 5. No acute intracranial abnormality Dictated by Costa Bui MD @ 03/19/2025 11:38:04 AM (Electronically Signed)
== END 2025-03-18 15:17 | disposition home or self-care (01) ==
LOC: MRI 15:17
PROVIDERS: PCP Family Medicine; Visit Provider Otolaryngology
DX: R42 Dizziness and giddiness (principal); G93.89 Other specified disorders of brain; I67.82 Cerebral ischemia
CPT/HCPCS: 70553; A9575

== ENCOUNTER 2025-04-20 13:15 | Outpatient (RCR) | payer MEDICARE, BC, SELFPAY ==
--- NOTE | 2025-04-04 15:53 | PT.OPEX ---
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 12 months ago she fell while standing and trying to move with her slippers catching and she fell. May have causes some back strain. 10 months ago she fell trying to get off the toilet. She fell forward with her shoulder hitting the doorway. Shortly after this she began having severe nerve like pains across her thoracic spine. Pt has what is described as nerve pain that goes straight across her thoracic spine at the most wedged spot. Lying down is the only thing that makes her pain calm down. Activity would increase her pain. Pt had PT for her dizziness and ever since the PT worked on her neck and posture, she has not had any further nerve like pains. Pt notes that she does still have general upper thoracic soreness and discomfort. She is still working with her PT to address her dizziness. Would like PT starting today to focus on her ongoing thoracic spine pain and stiffness. Pain Comments Mild- no longer having nerve pain Current Work Status Retired Objective Other/Pertinent Posture: Increased thoracic kyphosis. Elevated Objective shoulders, Bilat rounded shoulders Cervical ROM: flex WNL, Ext mod/lani dec - can have dizziness, Bilat rotation mod dec Trunk ROM: FLex WNL, rotation ROM mod restriction bilat Shoulder elevation shows end range restriction Assessment Assessment/ Pt presents to the clinic with long standing issues of Impression thoracic spine pain. Although her severe nerve like pains have calmed, she still shows decreased mobility and ongoing pain. Pt thoracic spine pain appears secondary to postural dysfunction and poor CT spine mobility and controlled mobility. Skilled PT is necessary to safely incorporate ther ex, nm jaja and manual therapy to decrease pain and improve functional mobility. 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 Pt will be independent with HEP in 8 weeks. Goals 2. Pt will walk x 15 minutes for exer with 75% decrease in pain in 10 weeks. 3. Pt will complete 60 minutes of summer law associate with 75% decrease in pain in 12 weeks. Coordination/ Referral Source Communication With Treatment Plan/ Manual Therapy,Neuromuscular Re-ed,Self-Care/Home Direct Interventions Management,Therapeutic Activities,Therapeutic Exercises Frequency/Duration 1-2x/wk for 12 weeks Patient Will Be Completion of LTG(s),Skills Plateau,Independent w/HEP, Discharged From Independently Progressing Therapy Evaluation Billing Untimed Code 55 Treatment Minutes Complexity Moderate Certification Information Initial 04/04/25 Certification Date Ending Certification 07/03/25 Date Provider Signature Yes Required Provider Signature POC & Medical Necessity Shows Agreement With Physician NPI Number Write NPI# Here Physician Comment/ : Change Physician Signature Please Sign/Date Here & Date Requested
== END 2025-08-15 11:26 | disposition home or self-care (01) ==
PROVIDERS: PCP Family Medicine; Visit Provider Family Medicine
DX: M54.6 Pain in thoracic spine (principal); Z51.89 Encounter for other specified aftercare
CPT/HCPCS: 97110; 97162

== ENCOUNTER 2025-09-08 17:28 | Outpatient (CLI) | payer MEDICARE, BC, SELFPAY ==
--- NOTE | 2025-09-08 17:30 | CRLHL7_ITS ---
For Patients: As a result of the Century Cures Act, medical imaging exams and procedure reports are released immediately into your electronic medical record. You may view this report before your referring provider. If you have questions, please contact your health care provider. INDICATION: Neck pain TECHNIQUE: Noncontrast sagittal T1, T2, STIR and axial GRE sequences are provided. No comparisons. FINDINGS: The overall stature, alignment and intrinsic marrow signal of the cervical spine is within normal limits. Cervical cord is normal. C2-3: Unremarkable. C3-4: Trivial posterior disc bulge results in no central canal or foraminal narrowing. C4-5: Unremarkable. C5-6: Mild posterior disc bulge results in no central canal narrowing. Moderate to severe right and moderate left foraminal narrowing due to asymmetric uncovertebral joint and facet arthropathy. C6-7: Mild disc osteophyte complex results in no significant central canal narrowing. Asymmetric uncovertebral joint and facet arthropathy results in [id number]-[id number]-oquipogq right and mild left foraminal narrowing. C7-T1: Unremarkable. IMPRESSION: 1. Moderate to severe right and moderate left foraminal narrowing at C5-6. 2. Xdgc-ni-colzkejl right and mild left C6-7 foraminal narrowing. Dictated by Daniel Bardales MD @ 09/09/2025 11:56:39 AM (Electronically Signed)
== END 2025-09-08 17:29 | disposition home or self-care (01) ==
LOC: MRI 17:29
PROVIDERS: PCP Family Medicine; Visit Provider Family Medicine
DX: M50.222 Other cervical disc displacement at C5-C6 level (principal); M50.223 Other cervical disc displacement at C6-C7 level
CPT/HCPCS: 72141

== ENCOUNTER 2025-09-28 09:32 | Outpatient (CLI) | payer MEDICARE, BC, SELFPAY | END 2025-09-28 09:33 | disposition home or self-care (01) | LOC: INJ CL 09:34 | PROVIDERS: PCP Family Medicine; Visit Provider Nurse Anesthetist, Certified Registered | DX: M50.122 Cervical disc disorder at C5-C6 level with radiculopathy (principal) | CPT/HCPCS: 64479; J1100; Q9966 ==